=== PATIENT | male | born 1935 | race Caucasian/White ===

== ENCOUNTER 2017-06-23 17:26 | Inpatient (IN) | payer MEDICARE, OTHER ==
[2017-06-23 18:08] LABS: ADD MAN DIFF? NO
[2017-06-23 18:11] LABS: BASOPHILS % 0.2 % (0.0-2.0); EOSINOPHILS # 0.5 10^3/ul (0.0-0.5); EOSINOPHILS % 4.2 % (0.0-7.0); HEMOGLOBIN 9.3 g/dl (14.0-18.0); LYMPHOCYTES # 1.6 10^3/ul (0.8-2.9); LYMPHOCYTES % 12.6 % (15.0-51.0); MEAN CORPUSCULAR HEMOGLOBIN 29.1 pg (29.0-33.0); MEAN CORPUSCULAR HGB CONC 33.2 g/dl (32.0-37.0); MEAN CORPUSCULAR VOLUME 87.5 fl (82.0-101.0); MONOCYTE # 0.6 10^3/ul (0.3-0.9); MONOCYTES % 4.6 % (0.0-11.0); NEUTROPHIL # 9.5 10^3/ul (1.6-7.5); NEUTROPHILS % 77.6 % (39.0-77.0); PLATELET COUNT 192 10^3/UL (140-415); RED CELL DISTRIBUTION WIDTH 15.8 % (11.5-14.5)
[2017-06-23 18:11] LABS: WHITE BLOOD COUNT 12.3 10^3/ul (4.8-10.8)
[2017-06-23] MEDS: SOD CHLORIDE 0.9% 1,000 ML IV (18:11)
[2017-06-23 18:27] LABS: LACTIC ACID 1.3 mmol/L (0.5-2.0)
[2017-06-23 18:28] LABS: ALANINE AMINOTRANSFERASE 24 IU/L (13-69); ALBUMIN 3.3 g/dl (3.3-4.9); ALBUMIN/GLOBULIN RATIO 0.94; ALKALINE PHOSPHATASE 216 IU/L (42-121); ANION GAP 19 (8-16); ASPARTATE AMINO TRANSFERASE 18 IU/L (15-46); BILIRUBIN,INDIRECT 0.1 mg/dl (0-1.1); BILIRUBIN,TOTAL 0.1 mg/dl (0.2-1.3); BLOOD UREA NITROGEN 57 mg/dl (7-20); CALCIUM 8.9 mg/dl (8.4-10.2); CARBON DIOXIDE 26 mmol/L (21-31); CHLORIDE 98 mmol/L (97-110); CREATININE 2.35 mg/dl (0.61-1.24); GLUCOSE 165 mg/dl (70-220); POTASSIUM 3.7 mmol/L (3.5-5.1); SODIUM 139 mmol/L (135-144); TOTAL PROTEIN 6.8 g/dl (6.1-8.1)
[2017-06-23 18:36] LABS: INR 1.15; PROTIME 14.9 Sec (11.9-14.9); PT RATIO 1.2
[2017-06-23 18:37] LABS: PARTIAL THROMBOPLASTIN TIME 43.1 Sec (25.0-35.0)
[2017-06-23 18:51] LABS: AADO2 Arterial 113.4 mmHg (7.0-24.0); Allen Test ACCEPTAB; Arterial Base Excess 3.7 mmol/L (-3.0-3); Arterial Blood Gas Oxygen Sat 99.4 mmHG (95.0-100.0); Arterial COHb 0.3 % (0.0-3.0); Arterial Fraction of Oxyhgb 98.7 % (93.0-99.0); Arterial MetHb 0.4 % (0.0-1.5); Arterial Total Hemglobin 9.8 g/dl (12.0-18.0); Arterial pCO2 35.7 mmhg (35-45); MODE VENT - AC; Site Right Radial; TROPONIN-I < 0.012 ng/ml (0.00-0.12)
[2017-06-23] MEDS: CEFEPIME 2GM/50 ML (PMX) 50 ML IVPB (19:11)
[2017-06-23] MEDS: ONDANSETRON 4 MG INJ IV (19:11)
[2017-06-23] MEDS: VANCOMYCIN 1 GM (PMX) 250 ML IVPB (19:11)
[2017-06-23] MEDS: ACETAMINOPHEN 325 MG TAB PO (19:11)
[2017-06-23 21:24] LABS: LACTIC ACID 0.7 mmol/L (0.5-2.0)
[2017-06-23 23:41] LABS: LACTIC ACID 0.6 mmol/L (0.5-2.0); MAGNESIUM 2.4 mg/dl (1.7-2.5)
[2017-06-24] MEDS ORDERED: VANCOMYCIN IV PER PHARMACY XX (00:30)
[2017-06-24] MEDS ORDERED: ONDANSETRON 4 MG INJ IV ×2 (00:30→14:30)
[2017-06-24] MEDS ORDERED: NACL 0.9% 3 ML SYG IV (00:30)
[2017-06-24] MEDS: metroNIDAZOLE 500 MG/NS (PMX) 100 ML IVPB ×4 (01:14→18:47)
[2017-06-24] MEDS ORDERED: PENDING SANTYL ORDER FOR WOUND CARE XX (05:00)
[2017-06-24] MEDS: SOD CHLORIDE 0.9% 1,000 ML IV (05:32)
[2017-06-24] MEDS: CEFTRIAXONE 1 GM/50 ML (PMX) 50 ML IVPB (05:32)
[2017-06-24 07:18] LABS: ADD MAN DIFF? NO
[2017-06-24 07:25] LABS: WHITE BLOOD COUNT 16.9 10^3/ul (4.8-10.8)
[2017-06-24 07:25] LABS: BASOPHILS % 0.2 % (0.0-2.0); EOSINOPHILS # 0.2 10^3/ul (0.0-0.5); EOSINOPHILS % 0.9 % (0.0-7.0); HEMATOCRIT 24.5 % (42.0-52.0); HEMOGLOBIN 8.2 g/dl (14.0-18.0); LYMPHOCYTES # 1.5 10^3/ul (0.8-2.9); LYMPHOCYTES % 8.9 % (15.0-51.0); MEAN CORPUSCULAR HEMOGLOBIN 29.4 pg (29.0-33.0); MEAN CORPUSCULAR HGB CONC 33.5 g/dl (32.0-37.0); MEAN CORPUSCULAR VOLUME 87.8 fl (82.0-101.0); MEAN PLATELET VOLUME 10.2 fl (7.4-10.4); MONOCYTE # 0.7 10^3/ul (0.3-0.9); MONOCYTES % 4.4 % (0.0-11.0); NEUTROPHIL # 14.4 10^3/ul (1.6-7.5); NEUTROPHILS % 85.2 % (39.0-77.0); PLATELET COUNT 182 10^3/UL (140-415); RED BLOOD COUNT 2.79 10^6/ul (4.70-6.10); RED CELL DISTRIBUTION WIDTH 15.9 % (11.5-14.5)
[2017-06-24 07:48] LABS: ALANINE AMINOTRANSFERASE 18 IU/L (13-69); ALKALINE PHOSPHATASE 153 IU/L (42-121); ANION GAP 18 (8-16); ASPARTATE AMINO TRANSFERASE 16 IU/L (15-46); BLOOD UREA NITROGEN 61 mg/dl (7-20); CALCIUM 8.4 mg/dl (8.4-10.2); CARBON DIOXIDE 24 mmol/L (21-31); CHLORIDE 101 mmol/L (97-110); CREATININE 2.69 mg/dl (0.61-1.24); GLUCOSE 104 mg/dl (70-220); POTASSIUM 3.3 mmol/L (3.5-5.1); SODIUM 140 mmol/L (135-144); TOTAL PROTEIN 6.3 g/dl (6.1-8.1)
[2017-06-24 08:04] LABS: LACTIC ACID 0.7 mmol/L (0.5-2.0)
[2017-06-24] MEDS: POTASSIUM CHLORIDE (SR) 20 MEQ TAB PO (09:03)
[2017-06-24] MEDS: POTASSIUM CHLORIDE 20 MEQ POWDER FOR ORAL SOLN GTB (10:07)
[2017-06-24 13:51] LABS: MAGNESIUM 2.4 mg/dl (1.7-2.5)
[2017-06-24] MEDS ORDERED: LEVALBUTEROL (NEB) 0.63 MG/3 ML AMP INH (14:30)
[2017-06-24 17:12] LABS: HEMOGLOBIN A1C 5.6 % (0-5.9)
[2017-06-24] MEDS ORDERED: NON-FORMULARY/PATIENT OWN MED (Protein Supplement (Promod) 30 ML) GTB (21:00)
[2017-06-24] MEDS: AMLODIPINE 5 MG TAB GTB (21:00)
[2017-06-24] MEDS: LEVETIRACETAM (100 MG/ML) 5ML CUP GTB (21:42)
[2017-06-24] MEDS: CHLORHEXIDINE GLUCONATE 15 ML UD CUP MM (21:42)
[2017-06-24] MEDS: SEVELAMER CARBONATE 0.8 GM PKT GTB (21:42)
[2017-06-25] MEDS: metroNIDAZOLE 500 MG/NS (PMX) 100 ML IVPB ×3 (00:21→12:45)
[2017-06-25] MEDS: SOD CHLORIDE 0.9% 1,000 ML IV (00:25)
[2017-06-25 02:10] LABS: ADD UMIC YES; UR AMORPHOUS CRYSTAL FEW /HPF (NONE SEEN); UR ASCORBIC ACID NEGATIVE (NEGATIVE); UR BACTERIA MANY /HPF (NONE SEEN); UR BILIRUBIN (Dip) NEGATIVE (NEGATIVE); UR BLOOD (Dip) 1+ mg/dL (NEGATIVE); UR CLARITY TURBID (CLEAR); UR COLOR AMBER (YELLOW); UR GLUCOSE (Dip) NEGATIVE (NEGATIVE); UR KETONES (Dip) NEGATIVE (NEGATIVE); UR LEUKOCYTE ESTERASE (Dip) 3+ Leu/ul (NEGATIVE); UR MUCUS FEW /HPF (NONE SEEN); UR NITRITE (Dip) NEGATIVE (NEGATIVE); UR RBC 19 /HPF (0-5); UR SPECIFIC GRAVITY (Dip) 1.012 (1.003-1.030); UR SQUAMOUS EPITHELIAL CELL MANY /HPF (FEW); UR TOTAL PROTEIN (Dip) 3+ mg/dl (NEGATIVE); UR UROBILINOGEN (Dip) NEGATIVE (NEGATIVE); UR WBC 107 /HPF (0-5)
[2017-06-25] MEDS: CEFTRIAXONE 1 GM/50 ML (PMX) 50 ML IVPB (03:42)
[2017-06-25] MEDS: AMLODIPINE 5 MG TAB GTB ×3 (03:42→23:28)
[2017-06-25] MEDS: LANSOPRAZOLE 30 MG CAP GTB (05:50)
[2017-06-25] MEDS ORDERED: PANTOPRAZOLE (EC) 40 MG TAB PO (06:00)
[2017-06-25 06:44] LABS: ADD MAN DIFF? NO; BASOPHILS % 0.2 % (0.0-2.0); EOSINOPHILS # 0.2 10^3/ul (0.0-0.5); EOSINOPHILS % 2.7 % (0.0-7.0); HEMATOCRIT 24.3 % (42.0-52.0); HEMOGLOBIN 7.9 g/dl (14.0-18.0); LYMPHOCYTES # 1.4 10^3/ul (0.8-2.9); LYMPHOCYTES % 15.8 % (15.0-51.0); MEAN CORPUSCULAR HEMOGLOBIN 28.9 pg (29.0-33.0); MEAN CORPUSCULAR HGB CONC 32.5 g/dl (32.0-37.0); MEAN PLATELET VOLUME 9.9 fl (7.4-10.4); MONOCYTE # 0.6 10^3/ul (0.3-0.9); MONOCYTES % 6.4 % (0.0-11.0); NEUTROPHIL # 6.6 10^3/ul (1.6-7.5); NEUTROPHILS % 74.3 % (39.0-77.0); PLATELET COUNT 172 10^3/UL (140-415); RED BLOOD COUNT 2.73 10^6/ul (4.70-6.10); RED CELL DISTRIBUTION WIDTH 16.1 % (11.5-14.5)
[2017-06-25 06:44] LABS: WHITE BLOOD COUNT 8.9 10^3/ul (4.8-10.8)
[2017-06-25 06:59] LABS: MAGNESIUM 2.1 mg/dl (1.7-2.5)
[2017-06-25] MEDS: SEVELAMER CARBONATE 0.8 GM PKT GTB ×3 (07:57→23:27)
[2017-06-25] MEDS: LEVETIRACETAM (100 MG/ML) 5ML CUP GTB ×2 (07:57→23:27)
[2017-06-25 08:09] LABS: VANCOMYCIN,RANDOM 8.9 ug/ml
[2017-06-25 08:26] LABS: HEPATITIS B SURFACE ANTIGEN NEGATIVE (NEGATIVE)
[2017-06-25 08:44] LABS: HEPATITIS B SURFACE ANTIBODY NEGATIVE (NEGATIVE)
[2017-06-25] MEDS: CHLORHEXIDINE GLUCONATE 15 ML UD CUP MM ×2 (08:56→23:29)
[2017-06-25] MEDS: MULTIVIT/CA CARB/B CMPLX/FA TAB GTB (08:56)
[2017-06-25] MEDS: LACTOBACILLUS RHAMNOSUS CAP PO (08:56)
[2017-06-25] MEDS: DUTASTERIDE 0.5 MG CAP GTB (08:56)
[2017-06-25 10:06] LABS: ANION GAP 15 (8-16); BLOOD UREA NITROGEN 29 mg/dl (7-20); CALCIUM 8.1 mg/dl (8.4-10.2); CARBON DIOXIDE 26 mmol/L (21-31); CHLORIDE 103 mmol/L (97-110); GLUCOSE 148 mg/dl (70-220); SODIUM 140 mmol/L (135-144)
[2017-06-25] MEDS: LISINOPRIL 20 MG TAB GTB (12:46)
[2017-06-25] MEDS: PIPER-TAZO 2.25 GM (PMX) 50 ML IVPB ×2 (13:58→17:52)
[2017-06-25] MEDS: HEPARIN 5,000 UNIT/0.5 ML VIAL SC ×2 (14:11→23:55)
[2017-06-25] MEDS: VANCOMYCIN 1 GM 250 ML IVPB (14:47)
[2017-06-25] MEDS: VANCOMYCIN HCL 250 MG/5ML POSYG PO (17:51)
[2017-06-25] MEDS: metroNIDAZOLE 500 MG TAB GTB (23:29)
[2017-06-26] MEDS: VANCOMYCIN HCL 250 MG/5ML POSYG PO ×4 (00:46→17:02)
[2017-06-26] MEDS: PIPER-TAZO 2.25 GM (PMX) 50 ML IVPB ×2 (00:46→06:20)
[2017-06-26] MEDS: metroNIDAZOLE 500 MG TAB GTB ×3 (06:20→23:33)
[2017-06-26] MEDS: LANSOPRAZOLE 30 MG CAP GTB (06:21)
[2017-06-26 08:33] LABS: ADD MAN DIFF? NO
[2017-06-26 08:39] LABS: BASOPHILS % 0.2 % (0.0-2.0); EOSINOPHILS # 0.4 10^3/ul (0.0-0.5); EOSINOPHILS % 3.6 % (0.0-7.0); HEMATOCRIT 23.2 % (42.0-52.0); HEMOGLOBIN 7.5 g/dl (14.0-18.0); LYMPHOCYTES # 1.2 10^3/ul (0.8-2.9); MEAN CORPUSCULAR HGB CONC 32.3 g/dl (32.0-37.0); MEAN CORPUSCULAR VOLUME 89.6 fl (82.0-101.0); MEAN PLATELET VOLUME 10.3 fl (7.4-10.4); MONOCYTE # 0.6 10^3/ul (0.3-0.9); MONOCYTES % 6.4 % (0.0-11.0); NEUTROPHIL # 7.6 10^3/ul (1.6-7.5); NEUTROPHILS % 77.2 % (39.0-77.0); PLATELET COUNT 182 10^3/UL (140-415); RED BLOOD COUNT 2.59 10^6/ul (4.70-6.10); RED CELL DISTRIBUTION WIDTH 16.4 % (11.5-14.5)
[2017-06-26 08:39] LABS: WHITE BLOOD COUNT 9.8 10^3/ul (4.8-10.8)
[2017-06-26] MEDS: LISINOPRIL 20 MG TAB GTB (09:00)
[2017-06-26] MEDS: AMLODIPINE 5 MG TAB GTB ×2 (09:00→21:30)
[2017-06-26 09:05] LABS: MAGNESIUM 2.3 mg/dl (1.7-2.5)
[2017-06-26 09:35] LABS: ANION GAP 14 (8-16); BLOOD UREA NITROGEN 46 mg/dl (7-20); CALCIUM 7.8 mg/dl (8.4-10.2); CARBON DIOXIDE 27 mmol/L (21-31); CHLORIDE 102 mmol/L (97-110); CREATININE 2.12 mg/dl (0.61-1.24); GLUCOSE 173 mg/dl (70-220); PHOSPHORUS 2.1 mg/dl (2.5-4.9); POTASSIUM 3.8 mmol/L (3.5-5.1); SODIUM 139 mmol/L (135-144)
[2017-06-26] MEDS: HEPARIN 1000 UNITS/ML 10 ML INJ CATHETER (12:20)
[2017-06-26] MEDS: CHLORHEXIDINE GLUCONATE 15 ML UD CUP MM ×2 (12:42→21:28)
[2017-06-26] MEDS: LEVETIRACETAM (100 MG/ML) 5ML CUP GTB ×2 (12:42→21:28)
[2017-06-26] MEDS: LACTOBACILLUS RHAMNOSUS CAP PO (12:42)
[2017-06-26] MEDS: MEROPENEM 500MG/50 ML (PMX) 50 ML IVPB ×2 (12:42→21:27)
[2017-06-26] MEDS: SEVELAMER CARBONATE 0.8 GM PKT GTB ×3 (12:42→21:28)
[2017-06-26] MEDS: DUTASTERIDE 0.5 MG CAP GTB (12:42)
[2017-06-26] MEDS: MULTIVIT/CA CARB/B CMPLX/FA TAB GTB (12:43)
[2017-06-26] MEDS: HEPARIN 5,000 UNIT/0.5 ML VIAL SC ×2 (12:45→21:58)
[2017-06-27] MEDS: VANCOMYCIN HCL 250 MG/5ML POSYG PO ×5 (01:42→23:53)
[2017-06-27] MEDS: LANSOPRAZOLE 30 MG CAP GTB (05:32)
[2017-06-27] MEDS: metroNIDAZOLE 500 MG TAB GTB ×3 (05:32→21:35)
[2017-06-27] MEDS: MEROPENEM 500MG/50 ML (PMX) 50 ML IVPB ×2 (08:23→21:36)
[2017-06-27] MEDS: LACTOBACILLUS RHAMNOSUS CAP PO (08:26)
[2017-06-27] MEDS: CHLORHEXIDINE GLUCONATE 15 ML UD CUP MM ×2 (08:26→21:35)
[2017-06-27] MEDS: AMLODIPINE 5 MG TAB GTB ×2 (08:26→21:36)
[2017-06-27] MEDS: MULTIVIT/CA CARB/B CMPLX/FA TAB GTB (08:26)
[2017-06-27] MEDS: SEVELAMER CARBONATE 0.8 GM PKT GTB ×3 (08:26→21:35)
[2017-06-27] MEDS: LEVETIRACETAM (100 MG/ML) 5ML CUP GTB ×2 (08:26→21:35)
[2017-06-27] MEDS: LISINOPRIL 20 MG TAB GTB (08:27)
[2017-06-27] MEDS: HEPARIN 5,000 UNIT/0.5 ML VIAL SC ×2 (08:28→21:41)
[2017-06-27] MEDS: DUTASTERIDE 0.5 MG CAP GTB (08:30)
[2017-06-27 08:40] LABS: ADD MAN DIFF? NO
[2017-06-27 08:44] LABS: BASOPHILS % 0.3 % (0.0-2.0); EOSINOPHILS # 0.5 10^3/ul (0.0-0.5); EOSINOPHILS % 4.7 % (0.0-7.0); HEMATOCRIT 25.3 % (42.0-52.0); LYMPHOCYTES # 2.2 10^3/ul (0.8-2.9); LYMPHOCYTES % 20.6 % (15.0-51.0); MEAN CORPUSCULAR HEMOGLOBIN 28.9 pg (29.0-33.0); MEAN CORPUSCULAR HGB CONC 31.6 g/dl (32.0-37.0); MEAN CORPUSCULAR VOLUME 91.3 fl (82.0-101.0); MEAN PLATELET VOLUME 10.3 fl (7.4-10.4); MONOCYTE # 0.7 10^3/ul (0.3-0.9); MONOCYTES % 6.6 % (0.0-11.0); NEUTROPHIL # 7.2 10^3/ul (1.6-7.5); NEUTROPHILS % 67.2 % (39.0-77.0); PLATELET COUNT 184 10^3/UL (140-415); RED BLOOD COUNT 2.77 10^6/ul (4.70-6.10); RED CELL DISTRIBUTION WIDTH 16.5 % (11.5-14.5)
[2017-06-27 08:44] LABS: WHITE BLOOD COUNT 10.7 10^3/ul (4.8-10.8)
[2017-06-27 09:08] LABS: ANION GAP 11 (8-16); BLOOD UREA NITROGEN 28 mg/dl (7-20); CALCIUM 8.1 mg/dl (8.4-10.2); CARBON DIOXIDE 33 mmol/L (21-31); CHLORIDE 100 mmol/L (97-110); CREATININE 1.65 mg/dl (0.61-1.24); GLUCOSE 138 mg/dl (70-220); POTASSIUM 3.7 mmol/L (3.5-5.1); SODIUM 140 mmol/L (135-144)
[2017-06-28] MEDS: metroNIDAZOLE 500 MG TAB GTB (05:53)
[2017-06-28] MEDS: VANCOMYCIN HCL 250 MG/5ML POSYG PO ×3 (05:53→17:57)
[2017-06-28] MEDS: LANSOPRAZOLE 30 MG CAP GTB (05:53)
[2017-06-28 08:42] LABS: ADD MAN DIFF? NO
[2017-06-28 08:48] LABS: BASOPHILS % 0.2 % (0.0-2.0); EOSINOPHILS # 0.4 10^3/ul (0.0-0.5); EOSINOPHILS % 4.6 % (0.0-7.0); HEMATOCRIT 25.4 % (42.0-52.0); HEMOGLOBIN 8.1 g/dl (14.0-18.0); LYMPHOCYTES # 2.3 10^3/ul (0.8-2.9); LYMPHOCYTES % 25.4 % (15.0-51.0); MEAN CORPUSCULAR HGB CONC 31.9 g/dl (32.0-37.0); MEAN PLATELET VOLUME 9.9 fl (7.4-10.4); MONOCYTE # 0.6 10^3/ul (0.3-0.9); MONOCYTES % 6.6 % (0.0-11.0); NEUTROPHIL # 5.7 10^3/ul (1.6-7.5); NEUTROPHILS % 62.5 % (39.0-77.0); PLATELET COUNT 175 10^3/UL (140-415); RED BLOOD COUNT 2.79 10^6/ul (4.70-6.10); RED CELL DISTRIBUTION WIDTH 16.7 % (11.5-14.5)
[2017-06-28 08:48] LABS: WHITE BLOOD COUNT 9.1 10^3/ul (4.8-10.8)
[2017-06-28] MEDS: DUTASTERIDE 0.5 MG CAP GTB (08:52)
[2017-06-28] MEDS: LISINOPRIL 20 MG TAB GTB (08:53)
[2017-06-28] MEDS: AMLODIPINE 5 MG TAB GTB ×2 (08:53→21:07)
[2017-06-28] MEDS: MEROPENEM 500MG/50 ML (PMX) 50 ML IVPB (08:53)
[2017-06-28] MEDS: LEVETIRACETAM (100 MG/ML) 5ML CUP GTB ×2 (08:53→21:07)
[2017-06-28] MEDS: CHLORHEXIDINE GLUCONATE 15 ML UD CUP MM ×2 (08:53→21:06)
[2017-06-28] MEDS: LACTOBACILLUS RHAMNOSUS CAP PO (08:53)
[2017-06-28] MEDS: HEPARIN 5,000 UNIT/0.5 ML VIAL SC ×2 (08:55→22:22)
[2017-06-28] MEDS: SEVELAMER CARBONATE 0.8 GM PKT GTB ×3 (08:56→21:06)
[2017-06-28] MEDS: MULTIVIT/CA CARB/B CMPLX/FA TAB GTB (09:04)
[2017-06-28] MEDS ORDERED: AMIKACIN IV PER PHARMACY XX (13:00)
[2017-06-28] MEDS: COLISTIMETHATE 75 MG in SOD CHLORIDE 0.9% 100 ML IVPB (15:45)
[2017-06-28] MEDS: SOD CHLORIDE 0.9% IVPB (17:07)
[2017-06-28] MEDS: AMIKACIN IVPB (17:07)
[2017-06-29] MEDS: VANCOMYCIN HCL 250 MG/5ML POSYG PO ×4 (01:24→17:17)
[2017-06-29] MEDS: ACETAMINOPHEN 325 MG TAB PO ×3 (06:00→21:50)
[2017-06-29] MEDS: LANSOPRAZOLE 30 MG CAP GTB (06:01)
[2017-06-29 06:43] LABS: ADD MAN DIFF? NO
[2017-06-29 06:45] LABS: WHITE BLOOD COUNT 8.1 10^3/ul (4.8-10.8)
[2017-06-29 06:45] LABS: BASOPHILS % 0.2 % (0.0-2.0); EOSINOPHILS # 0.3 10^3/ul (0.0-0.5); EOSINOPHILS % 3.7 % (0.0-7.0); HEMATOCRIT 25.7 % (42.0-52.0); HEMOGLOBIN 8.3 g/dl (14.0-18.0); LYMPHOCYTES # 1.4 10^3/ul (0.8-2.9); LYMPHOCYTES % 16.7 % (15.0-51.0); MEAN CORPUSCULAR HEMOGLOBIN 29.5 pg (29.0-33.0); MEAN CORPUSCULAR HGB CONC 32.3 g/dl (32.0-37.0); MEAN CORPUSCULAR VOLUME 91.5 fl (82.0-101.0); MEAN PLATELET VOLUME 9.4 fl (7.4-10.4); MONOCYTE # 0.5 10^3/ul (0.3-0.9); MONOCYTES % 6.7 % (0.0-11.0); NEUTROPHIL # 5.8 10^3/ul (1.6-7.5); NEUTROPHILS % 72.1 % (39.0-77.0); PLATELET COUNT 178 10^3/UL (140-415); RED BLOOD COUNT 2.81 10^6/ul (4.70-6.10); RED CELL DISTRIBUTION WIDTH 16.6 % (11.5-14.5)
[2017-06-29 07:27] LABS: INR 1.22; PROTIME 15.6 Sec (11.9-14.9); PT RATIO 1.2
[2017-06-29 07:30] LABS: ALANINE AMINOTRANSFERASE 23 IU/L (13-69); ALBUMIN/GLOBULIN RATIO 0.88; ALKALINE PHOSPHATASE 156 IU/L (42-121); ANION GAP 15 (8-16); ASPARTATE AMINO TRANSFERASE 17 IU/L (15-46); BLOOD UREA NITROGEN 53 mg/dl (7-20); CARBON DIOXIDE 29 mmol/L (21-31); CHLORIDE 98 mmol/L (97-110); CREATININE 2.74 mg/dl (0.61-1.24); GLUCOSE 145 mg/dl (70-220); SODIUM 138 mmol/L (135-144); TOTAL PROTEIN 6.4 g/dl (6.1-8.1)
[2017-06-29] MEDS: ALTEPLASE (CATHFLO) 2 MG INJ CATHETER (09:13)
[2017-06-29] MEDS: DUTASTERIDE 0.5 MG CAP GTB (09:19)
[2017-06-29] MEDS: LACTOBACILLUS RHAMNOSUS CAP PO (09:19)
[2017-06-29] MEDS: MULTIVIT/CA CARB/B CMPLX/FA TAB GTB (09:19)
[2017-06-29] MEDS: LISINOPRIL 20 MG TAB GTB (09:20)
[2017-06-29] MEDS: LEVETIRACETAM (100 MG/ML) 5ML CUP GTB ×2 (09:20→21:48)
[2017-06-29] MEDS: SEVELAMER CARBONATE 0.8 GM PKT GTB ×3 (09:20→21:49)
[2017-06-29] MEDS: AMLODIPINE 5 MG TAB GTB ×2 (09:20→21:50)
[2017-06-29] MEDS: CHLORHEXIDINE GLUCONATE 15 ML UD CUP MM ×2 (09:21→21:48)
[2017-06-29] MEDS: HEPARIN 5,000 UNIT/0.5 ML VIAL SC ×2 (09:25→21:52)
[2017-06-29] MEDS ORDERED: ALBUMIN HUMAN 25% 100 ML IV (14:30)
[2017-06-29] MEDS: HEPARIN 1000 UNITS/ML 10 ML INJ CATHETER (17:10)
[2017-06-29] MEDS: EPOETIN 10000 UNITS/1 ML INJ (ESRD) SC (17:18)
[2017-06-29] MEDS: COLISTIMETHATE 75 MG in SOD CHLORIDE 0.9% 100 ML IVPB (17:18)
[2017-06-29] MEDS: AMIKACIN 300 MG in SOD CHLORIDE 0.9% 100 ML IVPB (19:04)
[2017-06-30] MEDS: VANCOMYCIN HCL 250 MG/5ML POSYG PO ×4 (01:56→18:04)
[2017-06-30] MEDS: ACETAMINOPHEN 325 MG TAB PO ×2 (05:04→21:25)
[2017-06-30] MEDS: LANSOPRAZOLE 30 MG CAP GTB (05:05)
[2017-06-30] MEDS: CHLORHEXIDINE GLUCONATE 15 ML UD CUP MM ×2 (08:41→20:19)
[2017-06-30] MEDS: LACTOBACILLUS RHAMNOSUS CAP PO (08:41)
[2017-06-30] MEDS: LEVETIRACETAM (100 MG/ML) 5ML CUP GTB ×2 (08:41→20:18)
[2017-06-30] MEDS: SEVELAMER CARBONATE 0.8 GM PKT GTB ×3 (08:41→20:19)
[2017-06-30] MEDS: DUTASTERIDE 0.5 MG CAP GTB (08:41)
[2017-06-30] MEDS: MULTIVIT/CA CARB/B CMPLX/FA TAB GTB (08:42)
[2017-06-30] MEDS: AMLODIPINE 5 MG TAB GTB ×2 (08:43→20:21)
[2017-06-30] MEDS: LISINOPRIL 20 MG TAB GTB (08:43)
[2017-06-30] MEDS: HEPARIN 5,000 UNIT/0.5 ML VIAL SC ×2 (09:05→20:23)
[2017-06-30] MEDS ORDERED: VANCOMYCIN IV PER PHARMACY XX (12:00)
[2017-06-30] MEDS: FLUCONAZOLE 100 MG TAB PO (12:27)
[2017-06-30] MEDS: VANCOMYCIN 1 GM 250 ML IVPB (12:28)
[2017-06-30] MEDS: COLISTIMETHATE 75 MG in SOD CHLORIDE 0.9% 100 ML IVPB (14:44)
[2017-07-01] MEDS: VANCOMYCIN HCL 250 MG/5ML POSYG PO ×4 (00:42→18:00)
[2017-07-01] MEDS: LANSOPRAZOLE 30 MG CAP GTB (06:13)
[2017-07-01] MEDS: AMLODIPINE 5 MG TAB GTB (09:00)
[2017-07-01] MEDS: LISINOPRIL 20 MG TAB GTB (09:00)
[2017-07-01] MEDS: FLUCONAZOLE 100 MG TAB PO (09:28)
[2017-07-01] MEDS: MULTIVIT/CA CARB/B CMPLX/FA TAB GTB (09:28)
[2017-07-01] MEDS: LACTOBACILLUS RHAMNOSUS CAP PO (09:28)
[2017-07-01] MEDS: LEVETIRACETAM (100 MG/ML) 5ML CUP GTB (09:28)
[2017-07-01] MEDS: DUTASTERIDE 0.5 MG CAP GTB (09:28)
[2017-07-01] MEDS: SEVELAMER CARBONATE 0.8 GM PKT GTB ×2 (09:28→13:01)
[2017-07-01] MEDS: CHLORHEXIDINE GLUCONATE 15 ML UD CUP MM (09:29)
[2017-07-01] MEDS: HEPARIN 5,000 UNIT/0.5 ML VIAL SC (09:46)
[2017-07-01] MEDS: HEPARIN 1000 UNITS/ML 10 ML INJ CATHETER (11:52)
[2017-07-01] MEDS: AMIKACIN 300 MG in SOD CHLORIDE 0.9% 100 ML IVPB (13:02)
[2017-07-01] MEDS: EPOETIN 10000 UNITS/1 ML INJ (ESRD) SC (16:34)
[2017-07-01] MEDS: COLISTIMETHATE 75 MG in SOD CHLORIDE 0.9% 100 ML IVPB ×2 (17:40→18:18)
== END 2017-07-01 18:30 | disposition short-term general hospital (02) | DRG 870 ==
LOC: TEL 18:55 → E/R 17:26
PROC: 5A1955Z Respiratory Ventilation, Greater than 96 Consecutive Hours (ICD-10-PCS; principal; 2017-06-23)
PROC: 5A1D70Z Performance of Urinary Filtration, Intermittent, Less than 6 Hours Per Day (ICD-10-PCS; 2017-06-24)
PROC: 5A1D70Z Performance of Urinary Filtration, Intermittent, Less than 6 Hours Per Day (ICD-10-PCS; 2017-06-26)
PROC: 5A1D70Z Performance of Urinary Filtration, Intermittent, Less than 6 Hours Per Day (ICD-10-PCS; 2017-06-29)
PROC: 5A1D70Z Performance of Urinary Filtration, Intermittent, Less than 6 Hours Per Day (ICD-10-PCS; 2017-07-01)
DX: A41.50 Gram-negative sepsis, unspecified (principal); N18.6 End stage renal disease; G92 Toxic encephalopathy; N39.0 Urinary tract infection, site not specified; J96.10 Chronic respiratory failure, unspecified whether with hypoxia or hypercapnia; I69.959 Hemiplegia and hemiparesis following unspecified cerebrovascular disease affecting unspecified side; A04.72 Enterocolitis due to Clostridium difficile, not specified as recurrent; Z99.81 Dependence on supplemental oxygen; D64.9 Anemia, unspecified; E11.22 Type 2 diabetes mellitus with diabetic chronic kidney disease; Z43.0 Encounter for attention to tracheostomy; Z93.1 Gastrostomy status; Z87.891 Personal history of nicotine dependence; Z87.820 Personal history of traumatic brain injury; E87.6 Hypokalemia; E83.89 Other disorders of mineral metabolism; R13.10 Dysphagia, unspecified; R65.20 Severe sepsis without septic shock; Z22.322 Carrier or suspected carrier of Methicillin resistant Staphylococcus aureus; R33.9 Retention of urine, unspecified
CPT/HCPCS: 36415; 36600; 70450; 71045; 76705; 80048; 80053; 80202; 81001; 82803; 83036; 83605; 83735; 84100; 84484; 85025; 85610; 85730; 86706; 87040; 87075; 87081; 87086; 87340; 90935; 93005; 94002; 94003; 96365; 96366; 96375; 97162; 97166; 99285-25

== ENCOUNTER 2017-11-03 07:34 | Inpatient (IN) | payer MEDICARE, OTHER ==
[2017-11-03 07:52] LABS: ADD MAN DIFF? NO
[2017-11-03 07:57] LABS: ABNORMAL IP MESSAGE 1; BASOPHILS % 0.2 % (0.0-2.0); EOSINOPHILS # 0.7 10^3/ul (0.0-0.5); EOSINOPHILS % 5.9 % (0.0-7.0); HEMATOCRIT 39.1 % (42.0-52.0); HEMOGLOBIN 12.5 g/dl (14.0-18.0); LYMPHOCYTES # 2.4 10^3/ul (0.8-2.9); LYMPHOCYTES % 19.7 % (15.0-51.0); MEAN CORPUSCULAR HEMOGLOBIN 31.4 pg (29.0-33.0); MEAN CORPUSCULAR VOLUME 98.2 fl (82.0-101.0); MEAN PLATELET VOLUME 11.1 fl (7.4-10.4); MONOCYTE # 0.5 10^3/ul (0.3-0.9); MONOCYTES % 3.9 % (0.0-11.0); NEUTROPHIL # 8.3 10^3/ul (1.6-7.5); NEUTROPHILS % 69.7 % (39.0-77.0); PLATELET COUNT 85 10^3/UL (140-415); POSITIVE DIFF @See below; RED BLOOD COUNT 3.98 10^6/ul (4.70-6.10); RED CELL DISTRIBUTION WIDTH 15.9 % (11.5-14.5)
[2017-11-03 07:57] LABS: WHITE BLOOD COUNT 11.9 10^3/ul (4.8-10.8)
[2017-11-03 08:13] LABS: LACTIC ACID 1.4 mmol/L (0.5-2.0)
[2017-11-03 08:17] LABS: INR 0.98; PROTIME 13.1 Sec (11.9-14.9)
[2017-11-03 08:20] LABS: ALANINE AMINOTRANSFERASE 31 IU/L (13-69); ALBUMIN 3.9 g/dl (3.3-4.9); ALBUMIN/GLOBULIN RATIO 1.02; ALKALINE PHOSPHATASE 285 IU/L (42-121); ANION GAP 18 (8-16); ASPARTATE AMINO TRANSFERASE 31 IU/L (15-46); BILIRUBIN,INDIRECT 0.2 mg/dl (0-1.1); BILIRUBIN,TOTAL 0.2 mg/dl (0.2-1.3); BLOOD UREA NITROGEN 35 mg/dl (7-20); CALCIUM 8.8 mg/dl (8.4-10.2); CARBON DIOXIDE 24 mmol/L (21-31); CHLORIDE 102 mmol/L (97-110); GLUCOSE 220 mg/dl (70-220); POTASSIUM 4.7 mmol/L (3.5-5.1); SODIUM 139 mmol/L (135-144); TOTAL PROTEIN 7.7 g/dl (6.1-8.1)
[2017-11-03 08:30] LABS: TROPONIN-I < 0.012 ng/ml (0.000-0.120)
[2017-11-03] MEDS: PIPER-TAZO 3.375 GM IV (PMX) 100 ML IVPB (08:41)
[2017-11-03] MEDS: VANCOMYCIN 1.25 GM in SOD CHLORIDE 0.9% 250 ML IVPB (09:42)
[2017-11-03 10:11] LABS: AADO2 Arterial 247.5 mmHg (7.0-24.0); Allen Test ACCEPTAB; Arterial Base Excess -4.5 mmol/L (-3.0-3); Arterial Blood Gas Oxygen Sat 99.6 mmHG (95.0-100.0); Arterial COHb 0.4 % (0.0-3.0); Arterial Fraction of Oxyhgb 98.9 % (93.0-99.0); Arterial HCO3 25.2 mmol/L (22.0-26.0); Arterial MetHb 0.3 % (0.0-1.5); Arterial pCO2 70.3 mmhg (35-45); MODE MASK - NRB; Site Left Radial
[2017-11-03] MEDS: SOD CHLORIDE 0.9% 500 ML IV ×2 (10:33→10:42)
[2017-11-03 11:34] LABS: LACTIC ACID 1.3 mmol/L (0.5-2.0)
[2017-11-03 12:18] LABS: LACTIC ACID 2.2 mmol/L (0.5-2.0)
[2017-11-03] MEDS: SODIUM CHLORIDE 0.9% 1L BAG IV* (12:57)
[2017-11-03] MEDS ORDERED: VANCOMYCIN IV PER PHARMACY XX (13:00)
[2017-11-03] MEDS: PIPER-TAZO 2.25 GM (PMX) 50 ML IVPB ×3 (13:00→23:05)
[2017-11-03 13:28] LABS: AADO2 Arterial 124.3 mmHg (7.0-24.0); Allen Test ACCEPTAB; Arterial Base Excess -6.2 mmol/L (-3.0-3); Arterial Blood Gas Oxygen Sat 95.4 mmHG (95.0-100.0); Arterial COHb 0.5 % (0.0-3.0); Arterial Fraction of Oxyhgb 94.7 % (93.0-99.0); Arterial HCO3 19.5 mmol/L (22.0-26.0); Arterial MetHb 0.2 % (0.0-1.5); Arterial pCO2 39.4 mmhg (35-45); MODE VENT - AC; Site Left Radial
[2017-11-03] MEDS ORDERED: ALBUTEROL/IPRATROPIUM (NEB) 3 ML AMP HHN (13:30)
[2017-11-03] MEDS: SOD CHLORIDE 0.9% 250 ML IV ×2 (14:00→16:45)
[2017-11-03 16:03] LABS: CREATINE KINASE 29 IU/L (23-200)
[2017-11-03 16:17] LABS: CK INDEX 4.6; CK-MB 1.32 ng/ml (0.0-2.4); TROPONIN-I 0.026 ng/ml (0.000-0.120)
[2017-11-03] MEDS: SOD CHLORIDE 0.9% 1,000 ML IV (17:53)
[2017-11-03] MEDS ORDERED: NON-FORMULARY/PATIENT OWN MED (Protein Supplement (Promod) 30 ML) GTB (21:00)
[2017-11-03] MEDS ORDERED: AMLODIPINE 5 MG TAB GTB (21:00)
[2017-11-03] MEDS ORDERED: SEVELAMER CARBONATE 1.6 GM GTB (21:00)
[2017-11-03] MEDS: LEVETIRACETAM (100 MG/ML) 5ML CUP GTB (23:05)
[2017-11-03] MEDS: FERROUS SULFATE (EC) 325 MG TAB PO (23:05)
[2017-11-03] MEDS: ACETAMINOPHEN 325 MG TAB GTB (23:06)
[2017-11-03] MEDS: LACTOBACILLUS RHAMNOSUS CAP GTB (23:07)
[2017-11-03] MEDS: SEVELAMER CARBONATE 0.8 GM PKT GTB (23:07)
[2017-11-03 23:52] LABS: CK-MB 1.09 ng/ml (0.0-2.4); TROPONIN-I 0.032 ng/ml (0.000-0.120)
[2017-11-03 23:57] LABS: CREATINE KINASE 36 IU/L (23-200)
[2017-11-04] MEDS: SOD CHLORIDE 0.9% 1,000 ML IV ×2 (01:00→19:40)
[2017-11-04] MEDS: PIPER-TAZO 2.25 GM (PMX) 50 ML IVPB ×3 (05:30→21:50)
[2017-11-04] MEDS: PANTOPRAZOLE (EC) 40 MG TAB PO (05:30)
[2017-11-04 06:22] LABS: ABNORMAL IP MESSAGE 1; ADD MAN DIFF? NO; BASOPHILS % 0.3 % (0.0-2.0); EOSINOPHILS # 0.2 10^3/ul (0.0-0.5); EOSINOPHILS % 1.3 % (0.0-7.0); HEMATOCRIT 28.8 % (42.0-52.0); HEMOGLOBIN 9.2 g/dl (14.0-18.0); LYMPHOCYTES # 1.5 10^3/ul (0.8-2.9); LYMPHOCYTES % 9.6 % (15.0-51.0); MEAN CORPUSCULAR HEMOGLOBIN 31.1 pg (29.0-33.0); MEAN CORPUSCULAR HGB CONC 31.9 g/dl (32.0-37.0); MEAN CORPUSCULAR VOLUME 97.3 fl (82.0-101.0); MEAN PLATELET VOLUME 11.3 fl (7.4-10.4); MONOCYTE # 0.9 10^3/ul (0.3-0.9); MONOCYTES % 5.8 % (0.0-11.0); NEUTROPHIL # 13.2 10^3/ul (1.6-7.5); NEUTROPHILS % 82.7 % (39.0-77.0); PLATELET COUNT 74 10^3/UL (140-415); POSITIVE DIFF @See below; RED BLOOD COUNT 2.96 10^6/ul (4.70-6.10); RED CELL DISTRIBUTION WIDTH 16.5 % (11.5-14.5)
[2017-11-04 06:22] LABS: WHITE BLOOD COUNT 15.9 10^3/ul (4.8-10.8)
[2017-11-04 07:15] LABS: ANION GAP 14 (8-16); BLOOD UREA NITROGEN 47 mg/dl (7-20); CALCIUM 7.8 mg/dl (8.4-10.2); CARBON DIOXIDE 22 mmol/L (21-31); CHLORIDE 109 mmol/L (97-110); CREATININE 2.95 mg/dl (0.61-1.24); GLUCOSE 92 mg/dl (70-220); MAGNESIUM 2.5 mg/dl (1.7-2.5); POTASSIUM 4.8 mmol/L (3.5-5.1); SODIUM 140 mmol/L (135-144)
[2017-11-04 07:16] LABS: PHOSPHORUS 3.3 mg/dl (2.5-4.9)
[2017-11-04 07:53] LABS: ANISOCYTOSIS 1+ (0-0); BAND NEUTROPHILS #M 4.6 10^3/ul (0.0-0.6); BAND NEUTROPHILS % (M) 29 % (0-4); EOSINOPHILS % (M) 1 % (0-7); LYMPHOCYTES #M 1.7 10^3/ul (0.8-2.9); LYMPHOCYTES % (M) 11 % (15-51); METAMYELOCYTES #M 0.1 10^3/ul (0.0-0.0); METAMYELOCYTES %M 1 % (0-0); MICROCYTOSIS 1+ (0-0); MONOCYTE #M 0.7 10^3/ul (0.3-0.9); MONOCYTES % (M) 5 % (0-11); MYELOCYTES #M 0.1 10^3/ul (0.0-0.0); MYELOCYTES % (M) 1 % (0-0); PLATELET ESTIMATE SIG DECREASED; POLYCHROMASIA 2+ (0-0); PROMYELOCYTES #M 0.1 10^3/ul (0-0); PROMYELOCYTES % (M) 1 % (0-0); SEG NEUT #M 8.8 10^3/ul (1.6-7.5); SEGMENTED NEUTROPHILS (M) % 51 % (39-77); SMUDGE%M 6 % (0-0); SPHEROCYTES 1+ (0-0)
[2017-11-04] MEDS: LISINOPRIL 20 MG TAB GTB (09:00)
[2017-11-04] MEDS ORDERED: DUTASTERIDE 0.5 MG GTB (09:00)
[2017-11-04] MEDS: FERROUS SULFATE (EC) 325 MG TAB PO ×2 (10:05→21:49)
[2017-11-04] MEDS: SEVELAMER CARBONATE 0.8 GM PKT GTB ×3 (10:05→21:49)
[2017-11-04] MEDS: ASCORBIC ACID 250 MG TAB GTB (10:05)
[2017-11-04] MEDS: LEVETIRACETAM (100 MG/ML) 5ML CUP GTB ×2 (10:05→21:49)
[2017-11-04] MEDS: LACTOBACILLUS RHAMNOSUS CAP GTB ×2 (10:05→21:49)
[2017-11-04 16:35] LABS: HEPATITIS B SURFACE ANTIGEN NEGATIVE (NEGATIVE)
[2017-11-04] MEDS: HEPARIN 1000 UNITS/ML 10 ML INJ CATHETER (20:13)
[2017-11-04] MEDS ORDERED: TERAZOSIN 1 MG CAP PO (21:00)
[2017-11-05 05:40] LABS: ADD MAN DIFF? NO
[2017-11-05 05:43] LABS: WHITE BLOOD COUNT 12.2 10^3/ul (4.8-10.8)
[2017-11-05 05:43] LABS: ABNORMAL IP MESSAGE 1; BASOPHILS % 0.3 % (0.0-2.0); EOSINOPHILS # 0.8 10^3/ul (0.0-0.5); EOSINOPHILS % 6.8 % (0.0-7.0); HEMATOCRIT 29.4 % (42.0-52.0); HEMOGLOBIN 9.3 g/dl (14.0-18.0); LYMPHOCYTES # 1.3 10^3/ul (0.8-2.9); LYMPHOCYTES % 10.3 % (15.0-51.0); MEAN CORPUSCULAR HEMOGLOBIN 30.9 pg (29.0-33.0); MEAN CORPUSCULAR HGB CONC 31.6 g/dl (32.0-37.0); MEAN CORPUSCULAR VOLUME 97.7 fl (82.0-101.0); MEAN PLATELET VOLUME 11.1 fl (7.4-10.4); MONOCYTE # 0.6 10^3/ul (0.3-0.9); MONOCYTES % 4.7 % (0.0-11.0); NEUTROPHIL # 9.5 10^3/ul (1.6-7.5); NEUTROPHILS % 77.5 % (39.0-77.0); PLATELET COUNT 88 10^3/UL (140-415); POSITIVE DIFF @See below; RED BLOOD COUNT 3.01 10^6/ul (4.70-6.10); RED CELL DISTRIBUTION WIDTH 15.9 % (11.5-14.5)
[2017-11-05] MEDS: PIPER-TAZO 2.25 GM (PMX) 50 ML IVPB ×2 (06:08→19:38)
[2017-11-05] MEDS: PANTOPRAZOLE (EC) 40 MG TAB PO (06:08)
[2017-11-05 06:24] LABS: VANCOMYCIN,RANDOM 9.3 ug/ml
[2017-11-05 06:46] LABS: ANION GAP 15 (8-16); BLOOD UREA NITROGEN 22 mg/dl (7-20); CARBON DIOXIDE 25 mmol/L (21-31); CHLORIDE 104 mmol/L (97-110); CREATININE 1.97 mg/dl (0.61-1.24); GLUCOSE 55 mg/dl (70-220); SODIUM 140 mmol/L (135-144)
[2017-11-05] MEDS: LACTOBACILLUS RHAMNOSUS CAP GTB ×2 (09:20→20:31)
[2017-11-05] MEDS: SEVELAMER CARBONATE 0.8 GM PKT GTB ×3 (09:20→20:31)
[2017-11-05] MEDS: LEVETIRACETAM (100 MG/ML) 5ML CUP GTB ×2 (09:20→20:31)
[2017-11-05] MEDS: LISINOPRIL 20 MG TAB GTB (09:21)
[2017-11-05] MEDS: FERROUS SULFATE (EC) 325 MG TAB PO ×2 (09:21→20:30)
[2017-11-05] MEDS: ASCORBIC ACID 250 MG TAB GTB (09:21)
[2017-11-05] MEDS: VANCOMYCIN 1 GM 250 ML IVPB (14:55)
[2017-11-05] MEDS ORDERED: DEXTROSE 50% 50 ML SYRINGE IV ×2 (15:30)
[2017-11-05] MEDS ORDERED: GLUCAGON 1 MG INJ IM (15:30)
[2017-11-05] MEDS ORDERED: GLUCOSE GEL 15 GRAM TUBE BUCCAL (15:30)
[2017-11-05] MEDS ORDERED: GLUCOSE GEL 15 GRAM TUBE PO ×2 (15:30)
[2017-11-05] MEDS: INSULIN ASPART [NOVOLOG] 3 ML PEN SC (18:00)
[2017-11-05] MEDS: MUPIROCIN 2% 22 GM OINT TOP (20:32)
[2017-11-06] MEDS: PIPER-TAZO 2.25 GM (PMX) 50 ML IVPB ×3 (05:40→21:09)
[2017-11-06] MEDS: PANTOPRAZOLE (EC) 40 MG TAB PO (05:40)
[2017-11-06 05:42] LABS: ADD MAN DIFF? NO
[2017-11-06 05:47] LABS: WHITE BLOOD COUNT 7.3 10^3/ul (4.8-10.8)
[2017-11-06 05:47] LABS: ABNORMAL IP MESSAGE 1; BASOPHILS % 0.3 % (0.0-2.0); EOSINOPHILS # 0.7 10^3/ul (0.0-0.5); EOSINOPHILS % 9.8 % (0.0-7.0); HEMATOCRIT 32.7 % (42.0-52.0); HEMOGLOBIN 10.4 g/dl (14.0-18.0); LYMPHOCYTES # 1.1 10^3/ul (0.8-2.9); LYMPHOCYTES % 15.4 % (15.0-51.0); MEAN CORPUSCULAR HEMOGLOBIN 30.7 pg (29.0-33.0); MEAN CORPUSCULAR HGB CONC 31.8 g/dl (32.0-37.0); MEAN CORPUSCULAR VOLUME 96.5 fl (82.0-101.0); MONOCYTE # 0.4 10^3/ul (0.3-0.9); MONOCYTES % 5.6 % (0.0-11.0); NEUTROPHILS % 68.6 % (39.0-77.0); PLATELET COUNT 92 10^3/UL (140-415); POSITIVE DIFF @See below; RED BLOOD COUNT 3.39 10^6/ul (4.70-6.10); RED CELL DISTRIBUTION WIDTH 15.4 % (11.5-14.5)
[2017-11-06] MEDS: INSULIN ASPART [NOVOLOG] 3 ML PEN SC ×4 (06:00→17:28)
[2017-11-06 06:38] LABS: ANION GAP 11 (8-16); BLOOD UREA NITROGEN 36 mg/dl (7-20); CALCIUM 8.1 mg/dl (8.4-10.2); CARBON DIOXIDE 28 mmol/L (21-31); CHLORIDE 105 mmol/L (97-110); CREATININE 2.78 mg/dl (0.61-1.24); GLUCOSE 118 mg/dl (70-220); POTASSIUM 4.4 mmol/L (3.5-5.1); SODIUM 140 mmol/L (135-144)
[2017-11-06 06:39] LABS: PHOSPHORUS 3.1 mg/dl (2.5-4.9)
[2017-11-06 06:39] LABS: MAGNESIUM 2.5 mg/dl (1.7-2.5)
[2017-11-06] MEDS: LISINOPRIL 20 MG TAB GTB ×2 (08:29→13:14)
[2017-11-06] MEDS: AMLODIPINE 10 MG TAB GTB (09:00)
[2017-11-06] MEDS: MUPIROCIN 2% 22 GM OINT TOP ×2 (09:00→21:00)
[2017-11-06] MEDS: SEVELAMER CARBONATE 0.8 GM PKT GTB ×3 (09:00→21:00)
[2017-11-06] MEDS: HEPARIN 1000 UNITS/ML 10 ML INJ CATHETER (13:10)
[2017-11-06] MEDS: LEVETIRACETAM (100 MG/ML) 5ML CUP GTB ×2 (13:12→20:59)
[2017-11-06] MEDS: ASCORBIC ACID 250 MG TAB GTB (13:12)
[2017-11-06] MEDS: FERROUS SULFATE (EC) 325 MG TAB PO ×2 (13:14→20:59)
[2017-11-06] MEDS: LACTOBACILLUS RHAMNOSUS CAP GTB ×2 (13:14→20:59)
[2017-11-07] MEDS: INSULIN ASPART [NOVOLOG] 3 ML PEN SC ×4 (01:17→17:30)
[2017-11-07 06:11] LABS: ADD MAN DIFF? NO
[2017-11-07] MEDS: PIPER-TAZO 2.25 GM (PMX) 50 ML IVPB ×3 (06:19→22:00)
[2017-11-07] MEDS: PANTOPRAZOLE (EC) 40 MG TAB PO (06:20)
[2017-11-07 06:21] LABS: WHITE BLOOD COUNT 6.4 10^3/ul (4.8-10.8)
[2017-11-07 06:21] LABS: BASOPHILS % 0.3 % (0.0-2.0); EOSINOPHILS # 0.7 10^3/ul (0.0-0.5); EOSINOPHILS % 10.4 % (0.0-7.0); HEMATOCRIT 33.1 % (42.0-52.0); HEMOGLOBIN 10.6 g/dl (14.0-18.0); LYMPHOCYTES # 1.2 10^3/ul (0.8-2.9); LYMPHOCYTES % 19.3 % (15.0-51.0); MEAN CORPUSCULAR HEMOGLOBIN 30.6 pg (29.0-33.0); MEAN CORPUSCULAR VOLUME 95.7 fl (82.0-101.0); MEAN PLATELET VOLUME 11.3 fl (7.4-10.4); MONOCYTE # 0.4 10^3/ul (0.3-0.9); MONOCYTES % 5.9 % (0.0-11.0); NEUTROPHIL # 4.1 10^3/ul (1.6-7.5); NEUTROPHILS % 63.8 % (39.0-77.0); PLATELET COUNT 101 10^3/UL (140-415); RED BLOOD COUNT 3.46 10^6/ul (4.70-6.10); RED CELL DISTRIBUTION WIDTH 15.5 % (11.5-14.5)
[2017-11-07 06:48] LABS: ANION GAP 11 (8-16); BLOOD UREA NITROGEN 28 mg/dl (7-20); CALCIUM 7.6 mg/dl (8.4-10.2); CARBON DIOXIDE 31 mmol/L (21-31); CHLORIDE 101 mmol/L (97-110); CREATININE 2.21 mg/dl (0.61-1.24); GLUCOSE 176 mg/dl (70-220); MAGNESIUM 2.3 mg/dl (1.7-2.5); PHOSPHORUS 2.2 mg/dl (2.5-4.9); POTASSIUM 4.5 mmol/L (3.5-5.1); SODIUM 138 mmol/L (135-144)
[2017-11-07] MEDS: FERROUS SULFATE (EC) 325 MG TAB PO ×2 (09:14→20:42)
[2017-11-07] MEDS: ASCORBIC ACID 250 MG TAB GTB (09:14)
[2017-11-07] MEDS: BALSAM PERU/CASTOR OIL 60 GM TUBE TOP ×2 (09:14→20:42)
[2017-11-07] MEDS: NEUTRA-PHOS 250 MG PACKET PO (09:14)
[2017-11-07] MEDS: LACTOBACILLUS RHAMNOSUS CAP GTB ×2 (09:14→22:15)
[2017-11-07] MEDS: MUPIROCIN 2% 22 GM OINT TOP ×2 (09:14→20:42)
[2017-11-07] MEDS: LEVETIRACETAM (100 MG/ML) 5ML CUP GTB ×2 (09:14→20:41)
[2017-11-07] MEDS: AMLODIPINE 10 MG TAB GTB (09:15)
[2017-11-07] MEDS: LISINOPRIL 20 MG TAB GTB (09:16)
[2017-11-07] MEDS: EPOETIN 10000 UNITS/1 ML INJ (ESRD) SC (17:27)
[2017-11-08] MEDS: INSULIN ASPART [NOVOLOG] 3 ML PEN SC ×4 (00:34→18:00)
[2017-11-08] MEDS: PIPER-TAZO 2.25 GM (PMX) 50 ML IVPB ×3 (05:40→22:26)
[2017-11-08] MEDS: PANTOPRAZOLE (EC) 40 MG TAB PO (05:40)
[2017-11-08 06:03] LABS: ADD MAN DIFF? NO
[2017-11-08 06:15] LABS: WHITE BLOOD COUNT 5.9 10^3/ul (4.8-10.8)
[2017-11-08 06:15] LABS: BASOPHILS % 0.5 % (0.0-2.0); EOSINOPHILS # 0.6 10^3/ul (0.0-0.5); EOSINOPHILS % 10.2 % (0.0-7.0); HEMATOCRIT 31.5 % (42.0-52.0); HEMOGLOBIN 10.2 g/dl (14.0-18.0); LYMPHOCYTES # 1.3 10^3/ul (0.8-2.9); LYMPHOCYTES % 22.7 % (15.0-51.0); MEAN CORPUSCULAR HEMOGLOBIN 30.5 pg (29.0-33.0); MEAN CORPUSCULAR HGB CONC 32.4 g/dl (32.0-37.0); MEAN CORPUSCULAR VOLUME 94.3 fl (82.0-101.0); MEAN PLATELET VOLUME 10.7 fl (7.4-10.4); MONOCYTE # 0.5 10^3/ul (0.3-0.9); MONOCYTES % 8.3 % (0.0-11.0); NEUTROPHIL # 3.4 10^3/ul (1.6-7.5); PLATELET COUNT 102 10^3/UL (140-415); RED BLOOD COUNT 3.34 10^6/ul (4.70-6.10); RED CELL DISTRIBUTION WIDTH 15.2 % (11.5-14.5)
[2017-11-08 06:37] LABS: VANCOMYCIN,RANDOM 13.7 ug/ml
[2017-11-08 07:07] LABS: ANION GAP 15 (8-16); BLOOD UREA NITROGEN 47 mg/dl (7-20); CALCIUM 7.9 mg/dl (8.4-10.2); CARBON DIOXIDE 29 mmol/L (21-31); CHLORIDE 100 mmol/L (97-110); CREATININE 3.01 mg/dl (0.61-1.24); GLUCOSE 143 mg/dl (70-220); MAGNESIUM 2.4 mg/dl (1.7-2.5); PHOSPHORUS 2.8 mg/dl (2.5-4.9); POTASSIUM 4.8 mmol/L (3.5-5.1); SODIUM 139 mmol/L (135-144)
[2017-11-08] MEDS: AMLODIPINE 10 MG TAB GTB (08:12)
[2017-11-08] MEDS: LACTOBACILLUS RHAMNOSUS CAP GTB ×2 (08:13→20:55)
[2017-11-08] MEDS: MUPIROCIN 2% 22 GM OINT TOP ×2 (08:14→20:55)
[2017-11-08] MEDS: FERROUS SULFATE (EC) 325 MG TAB PO ×2 (08:14→20:55)
[2017-11-08] MEDS: LISINOPRIL 20 MG TAB GTB (08:14)
[2017-11-08] MEDS: LEVETIRACETAM (100 MG/ML) 5ML CUP GTB ×2 (08:14→20:55)
[2017-11-08] MEDS: BALSAM PERU/CASTOR OIL 60 GM TUBE TOP ×2 (08:14→20:56)
[2017-11-08] MEDS: ASCORBIC ACID 250 MG TAB GTB (09:00)
[2017-11-08] MEDS: HEPARIN 1000 UNITS/ML 10 ML INJ CATHETER (18:10)
[2017-11-08] MEDS: VANCOMYCIN 1 GM 250 ML IVPB (18:27)
[2017-11-09] MEDS: INSULIN ASPART [NOVOLOG] 3 ML PEN SC ×4 (00:13→17:27)
[2017-11-09] MEDS: PIPER-TAZO 2.25 GM (PMX) 50 ML IVPB ×3 (05:34→21:29)
[2017-11-09] MEDS: PANTOPRAZOLE (EC) 40 MG TAB PO (05:35)
[2017-11-09 06:19] LABS: ADD MAN DIFF? NO
[2017-11-09 06:25] LABS: BASOPHILS % 0.4 % (0.0-2.0); EOSINOPHILS # 0.8 10^3/ul (0.0-0.5); EOSINOPHILS % 11.7 % (0.0-7.0); HEMATOCRIT 31.8 % (42.0-52.0); LYMPHOCYTES # 1.5 10^3/ul (0.8-2.9); LYMPHOCYTES % 22.5 % (15.0-51.0); MEAN CORPUSCULAR HEMOGLOBIN 29.9 pg (29.0-33.0); MEAN CORPUSCULAR HGB CONC 31.4 g/dl (32.0-37.0); MEAN CORPUSCULAR VOLUME 95.2 fl (82.0-101.0); MEAN PLATELET VOLUME 10.6 fl (7.4-10.4); MONOCYTE # 0.4 10^3/ul (0.3-0.9); MONOCYTES % 6.3 % (0.0-11.0); NEUTROPHILS % 58.7 % (39.0-77.0); PLATELET COUNT 110 10^3/UL (140-415); RED BLOOD COUNT 3.34 10^6/ul (4.70-6.10); RED CELL DISTRIBUTION WIDTH 15.4 % (11.5-14.5)
[2017-11-09 06:25] LABS: WHITE BLOOD COUNT 6.9 10^3/ul (4.8-10.8)
[2017-11-09 07:22] LABS: ANION GAP 12 (8-16); BLOOD UREA NITROGEN 27 mg/dl (7-20); CALCIUM 7.9 mg/dl (8.4-10.2); CARBON DIOXIDE 32 mmol/L (21-31); CHLORIDE 102 mmol/L (97-110); CREATININE 2.07 mg/dl (0.61-1.24); GLUCOSE 128 mg/dl (70-220); MAGNESIUM 2.2 mg/dl (1.7-2.5); PHOSPHORUS 2.4 mg/dl (2.5-4.9); POTASSIUM 4.6 mmol/L (3.5-5.1); SODIUM 141 mmol/L (135-144)
[2017-11-09] MEDS: LACTOBACILLUS RHAMNOSUS CAP GTB ×2 (09:10→21:28)
[2017-11-09] MEDS: LEVETIRACETAM (100 MG/ML) 5ML CUP GTB ×2 (09:12→21:29)
[2017-11-09] MEDS: ASCORBIC ACID 250 MG TAB GTB (09:13)
[2017-11-09] MEDS: AMLODIPINE 10 MG TAB GTB (09:13)
[2017-11-09] MEDS: FERROUS SULFATE (EC) 325 MG TAB PO ×2 (09:13→21:28)
[2017-11-09] MEDS: LISINOPRIL 20 MG TAB GTB (09:14)
[2017-11-09] MEDS: BALSAM PERU/CASTOR OIL 60 GM TUBE TOP ×2 (09:15→21:00)
[2017-11-09] MEDS: MUPIROCIN 2% 22 GM OINT TOP ×2 (09:16→21:00)
[2017-11-10] MEDS: INSULIN ASPART [NOVOLOG] 3 ML PEN SC ×4 (00:25→17:06)
[2017-11-10] MEDS: PIPER-TAZO 2.25 GM (PMX) 50 ML IVPB ×3 (05:58→22:38)
[2017-11-10] MEDS: PANTOPRAZOLE (EC) 40 MG TAB PO (05:59)
[2017-11-10 06:09] LABS: ADD MAN DIFF? NO
[2017-11-10 06:12] LABS: BASOPHILS % 0.5 % (0.0-2.0); EOSINOPHILS # 0.8 10^3/ul (0.0-0.5); EOSINOPHILS % 12.1 % (0.0-7.0); HEMATOCRIT 31.8 % (42.0-52.0); HEMOGLOBIN 10.3 g/dl (14.0-18.0); LYMPHOCYTES # 1.6 10^3/ul (0.8-2.9); LYMPHOCYTES % 25.4 % (15.0-51.0); MEAN CORPUSCULAR HEMOGLOBIN 30.9 pg (29.0-33.0); MEAN CORPUSCULAR HGB CONC 32.4 g/dl (32.0-37.0); MEAN CORPUSCULAR VOLUME 95.5 fl (82.0-101.0); MEAN PLATELET VOLUME 10.9 fl (7.4-10.4); MONOCYTE # 0.4 10^3/ul (0.3-0.9); MONOCYTES % 6.6 % (0.0-11.0); NEUTROPHIL # 3.5 10^3/ul (1.6-7.5); NEUTROPHILS % 55.1 % (39.0-77.0); PLATELET COUNT 111 10^3/UL (140-415); RED BLOOD COUNT 3.33 10^6/ul (4.70-6.10); RED CELL DISTRIBUTION WIDTH 15.1 % (11.5-14.5)
[2017-11-10 06:12] LABS: WHITE BLOOD COUNT 6.4 10^3/ul (4.8-10.8)
[2017-11-10 06:41] LABS: ANION GAP 14 (8-16); BLOOD UREA NITROGEN 45 mg/dl (7-20); CALCIUM 8.1 mg/dl (8.4-10.2); CARBON DIOXIDE 31 mmol/L (21-31); CHLORIDE 101 mmol/L (97-110); CREATININE 2.84 mg/dl (0.61-1.24); GLUCOSE 165 mg/dl (70-220); MAGNESIUM 2.3 mg/dl (1.7-2.5); PHOSPHORUS 3.1 mg/dl (2.5-4.9); SODIUM 141 mmol/L (135-144)
[2017-11-10] MEDS: LEVETIRACETAM (100 MG/ML) 5ML CUP GTB ×2 (08:46→20:19)
[2017-11-10] MEDS: ASCORBIC ACID 250 MG TAB GTB (08:47)
[2017-11-10] MEDS: FERROUS SULFATE (EC) 325 MG TAB PO ×2 (08:47→20:19)
[2017-11-10] MEDS: LISINOPRIL 20 MG TAB GTB (08:47)
[2017-11-10] MEDS: LACTOBACILLUS RHAMNOSUS CAP GTB ×2 (08:47→20:19)
[2017-11-10] MEDS: AMLODIPINE 10 MG TAB GTB (08:48)
[2017-11-10] MEDS: BALSAM PERU/CASTOR OIL 60 GM TUBE TOP ×2 (08:49→20:19)
[2017-11-10] MEDS: MUPIROCIN 2% 22 GM OINT TOP ×2 (08:49→20:19)
[2017-11-10] MEDS: ALBUMIN HUMAN 25% 100 ML IV (14:12)
[2017-11-10] MEDS: HEPARIN 1000 UNITS/ML 10 ML INJ CATHETER (16:13)
[2017-11-10] MEDS: EPOETIN 10000 UNITS/1 ML INJ (ESRD) SC (17:21)
[2017-11-11] MEDS: INSULIN ASPART [NOVOLOG] 3 ML PEN SC ×4 (01:12→18:32)
[2017-11-11] MEDS: PIPER-TAZO 2.25 GM (PMX) 50 ML IVPB ×3 (05:22→21:46)
[2017-11-11] MEDS: PANTOPRAZOLE (EC) 40 MG TAB PO (05:23)
[2017-11-11] MEDS: BALSAM PERU/CASTOR OIL 60 GM TUBE TOP ×2 (09:30→21:47)
[2017-11-11] MEDS: LEVETIRACETAM (100 MG/ML) 5ML CUP GTB ×2 (09:30→21:47)
[2017-11-11] MEDS: ASCORBIC ACID 250 MG TAB GTB (09:31)
[2017-11-11] MEDS: LISINOPRIL 20 MG TAB GTB (09:31)
[2017-11-11] MEDS: LACTOBACILLUS RHAMNOSUS CAP GTB ×2 (09:31→21:48)
[2017-11-11] MEDS: FERROUS SULFATE (EC) 325 MG TAB PO ×2 (09:31→21:47)
[2017-11-11] MEDS: AMLODIPINE 10 MG TAB GTB (09:32)
[2017-11-11] MEDS: MUPIROCIN 2% 22 GM OINT TOP ×2 (09:32→21:52)
[2017-11-12] MEDS: INSULIN ASPART [NOVOLOG] 3 ML PEN SC ×4 (00:15→17:49)
[2017-11-12] MEDS: PANTOPRAZOLE (EC) 40 MG TAB PO (05:56)
[2017-11-12] MEDS: PIPER-TAZO 2.25 GM (PMX) 50 ML IVPB (05:57)
[2017-11-12] MEDS: LACTOBACILLUS RHAMNOSUS CAP GTB ×2 (08:34→21:11)
[2017-11-12] MEDS: BALSAM PERU/CASTOR OIL 60 GM TUBE TOP ×2 (08:34→21:11)
[2017-11-12] MEDS: LEVETIRACETAM (100 MG/ML) 5ML CUP GTB ×2 (08:34→21:08)
[2017-11-12] MEDS: FERROUS SULFATE (EC) 325 MG TAB PO ×2 (08:34→21:09)
[2017-11-12] MEDS: MUPIROCIN 2% 22 GM OINT TOP ×2 (08:34→21:11)
[2017-11-12] MEDS: ASCORBIC ACID 250 MG TAB GTB (08:35)
[2017-11-12] MEDS: AMLODIPINE 10 MG TAB GTB (08:37)
[2017-11-12] MEDS: LISINOPRIL 20 MG TAB GTB (08:37)
[2017-11-12] MEDS: HEPARIN 1000 UNITS/ML 10 ML INJ CATHETER (12:02)
[2017-11-12] MEDS: VANCOMYCIN 1 GM 250 ML IVPB (14:35)
[2017-11-12] MEDS: EPOETIN 10000 UNITS/1 ML INJ (ESRD) SC (17:37)
[2017-11-13] MEDS: INSULIN ASPART [NOVOLOG] 3 ML PEN SC ×4 (01:13→18:25)
[2017-11-13] MEDS: PANTOPRAZOLE (EC) 40 MG TAB PO (06:43)
[2017-11-13] MEDS: LACTOBACILLUS RHAMNOSUS CAP GTB ×2 (08:13→20:22)
[2017-11-13] MEDS: FERROUS SULFATE (EC) 325 MG TAB PO ×2 (08:13→20:22)
[2017-11-13] MEDS: LISINOPRIL 20 MG TAB GTB (08:13)
[2017-11-13] MEDS: AMLODIPINE 10 MG TAB GTB (08:13)
[2017-11-13] MEDS: LEVETIRACETAM (100 MG/ML) 5ML CUP GTB ×2 (08:13→20:22)
[2017-11-13] MEDS: MUPIROCIN 2% 22 GM OINT TOP ×2 (08:20→20:37)
[2017-11-13] MEDS: BALSAM PERU/CASTOR OIL 60 GM TUBE TOP (08:20)
[2017-11-13] MEDS: ASCORBIC ACID 250 MG TAB GTB (08:21)
== END 2017-11-13 20:45 | DRG 870 ==
LOC: E/R 07:34 → 6WM 08:49
PROC: 5A1955Z Respiratory Ventilation, Greater than 96 Consecutive Hours (ICD-10-PCS; principal; 2017-11-03)
PROC: 5A1D70Z Performance of Urinary Filtration, Intermittent, Less than 6 Hours Per Day (ICD-10-PCS; 2017-11-04)
DX: A41.9 Sepsis, unspecified organism (principal); L89.153 Pressure ulcer of sacral region, stage 3; J69.0 Pneumonitis due to inhalation of food and vomit; N18.6 End stage renal disease; G92 Toxic encephalopathy; J96.22 Acute and chronic respiratory failure with hypercapnia; J96.21 Acute and chronic respiratory failure with hypoxia; I13.2 Hypertensive heart and chronic kidney disease with heart failure and with stage 5 chronic kidney disease, or end stage renal disease; I69.954 Hemiplegia and hemiparesis following unspecified cerebrovascular disease affecting left non-dominant side; Z93.1 Gastrostomy status; Z93.0 Tracheostomy status; G40.909 Epilepsy, unspecified, not intractable, without status epilepticus; J44.9 Chronic obstructive pulmonary disease, unspecified; E11.22 Type 2 diabetes mellitus with diabetic chronic kidney disease; I50.9 Heart failure, unspecified; Z99.2 Dependence on renal dialysis; N40.0 Benign prostatic hyperplasia without lower urinary tract symptoms; I73.9 Peripheral vascular disease, unspecified; D63.1 Anemia in chronic kidney disease; Z90.49 Acquired absence of other specified parts of digestive tract; H54.62 Unqualified visual loss, left eye, normal vision right eye; E11.39 Type 2 diabetes mellitus with other diabetic ophthalmic complication; R13.10 Dysphagia, unspecified; I95.9 Hypotension, unspecified; D69.6 Thrombocytopenia, unspecified; L89.622 Pressure ulcer of left heel, stage 2
CPT/HCPCS: 36415; 36600; 70450; 71045; 74018; 80048; 80053; 80202; 82550; 82553; 82803; 82962; 83605; 83735; 84100; 84484; 85025; 85610; 85730; 86850; 86870; 86900; 86901; 87040; 87081; 87340; 90935; 93005; 93306; 94002; 94003; 96374; 97110; 97162; 97167; 97530; 99285-25

== ENCOUNTER 2018-03-17 11:54 | Inpatient (IN) | payer MEDICARE, OTHER ==
[2018-03-17 12:23] LABS: AADO2 Arterial 3.4 mmHg (7.0-24.0); Allen Test ACCEPTAB; Arterial Base Excess -2.2 mmol/L (-3.0-3); Arterial Blood Gas Oxygen Sat 96.4 mmHG (95.0-100.0); Arterial COHb 0.6 % (0.0-3.0); Arterial Fraction of Oxyhgb 95.6 % (93.0-99.0); Arterial HCO3 26.4 mmol/L (22.0-26.0); Arterial MetHb 0.2 % (0.0-1.5); Arterial pCO2 64.7 mmhg (35-45); MODE TRACH COLLAR; Site Right Radial
[2018-03-17 13:02] LABS: ALANINE AMINOTRANSFERASE 17 IU/L (13-69); ALBUMIN 3.8 g/dl (3.3-4.9); ALBUMIN/GLOBULIN RATIO 1.15; ALKALINE PHOSPHATASE 225 IU/L (42-121); ANION GAP 14 (5-13); ASPARTATE AMINO TRANSFERASE 17 IU/L (15-46); BLOOD UREA NITROGEN 60 mg/dl (7-20); CARBON DIOXIDE 27 mmol/L (21-31); CHLORIDE 99 mmol/L (97-110); CREATININE 3.74 mg/dl (0.61-1.24); GLUCOSE 171 mg/dl (70-220); POTASSIUM 3.9 mmol/L (3.5-5.1); SODIUM 140 mmol/L (135-144); TOTAL PROTEIN 7.1 g/dl (6.1-8.1)
[2018-03-17 13:04] LABS: INR 1.02; PROTIME 13.5 Sec (11.9-14.9); PT RATIO 1.1
[2018-03-17 13:05] LABS: PARTIAL THROMBOPLASTIN TIME 38.3 Sec (23.0-35.0)
[2018-03-17 13:10] LABS: ADD MAN DIFF? NO; ADD UMIC YES; BASOPHILS % 0.3 % (0.0-2.0); EOSINOPHILS # 1.1 10^3/ul (0.0-0.5); EOSINOPHILS % 9.5 % (0.0-7.0); HEMATOCRIT 36.2 % (42.0-52.0); HEMOGLOBIN 10.9 g/dl (14.0-18.0); LYMPHOCYTES # 2.1 10^3/ul (0.8-2.9); LYMPHOCYTES % 18.3 % (15.0-51.0); MEAN CORPUSCULAR HEMOGLOBIN 29.5 pg (29.0-33.0); MEAN CORPUSCULAR HGB CONC 30.1 g/dl (32.0-37.0); MEAN CORPUSCULAR VOLUME 98.1 fl (82.0-101.0); MEAN PLATELET VOLUME 10.6 fl (7.4-10.4); MONOCYTE # 0.8 10^3/ul (0.3-0.9); MONOCYTES % 7.1 % (0.0-11.0); NEUTROPHIL # 7.5 10^3/ul (1.6-7.5); NEUTROPHILS % 64.3 % (39.0-77.0); PLATELET COUNT 154 10^3/UL (140-415); RED BLOOD COUNT 3.69 10^6/ul (4.70-6.10); RED CELL DISTRIBUTION WIDTH 16.6 % (11.5-14.5); UR ASCORBIC ACID 40 mg/dL (NEGATIVE); UR BACTERIA MODERATE /HPF (NONE SEEN); UR BILIRUBIN (Dip) NEGATIVE (NEGATIVE); UR BLOOD (Dip) 1+ mg/dL (NEGATIVE); UR CLARITY TURBID (CLEAR); UR COLOR YELLOW (YELLOW); UR GLUCOSE (Dip) NEGATIVE (NEGATIVE); UR KETONES (Dip) TRACE mg/dL (NEGATIVE); UR LEUKOCYTE ESTERASE (Dip) 2+ Leu/ul (NEGATIVE); UR NITRITE (Dip) NEGATIVE (NEGATIVE); UR RBC 18 /HPF (0-5); UR SPECIFIC GRAVITY (Dip) 1.019 (1.003-1.030); UR TOTAL PROTEIN (Dip) 2+ mg/dl (NEGATIVE); UR UROBILINOGEN (Dip) NEGATIVE (NEGATIVE); UR WBC > 182 /HPF (0-5)
[2018-03-17 13:10] LABS: WHITE BLOOD COUNT 11.7 10^3/ul (4.8-10.8)
[2018-03-17 13:13] LABS: TROPONIN-I < 0.012 ng/ml (0.000-0.120)
[2018-03-17] MEDS: CEFEPIME 1GM/50 ML (PMX) 50 ML IVPB (13:26)
[2018-03-17] MEDS: SOD CHLORIDE 0.9% 500 ML IV (13:26)
[2018-03-17] MEDS: VANCOMYCIN 1 GM (PMX) 250 ML IVPB (13:59)
[2018-03-17] MEDS ORDERED: ACETAMINOPHEN 325 MG TAB PO (15:00)
[2018-03-17] MEDS ORDERED: ONDANSETRON 4 MG INJ IV (15:00)
[2018-03-17 15:30] LABS: AADO2 Arterial 32.3 mmHg (7.0-24.0); Allen Test ACCEPTAB; Arterial Base Excess -2.5 mmol/L (-3.0-3); Arterial COHb 0.2 % (0.0-3.0); Arterial Fraction of Oxyhgb 98.6 % (93.0-99.0); Arterial HCO3 21.7 mmol/L (22.0-26.0); Arterial MetHb 0.2 % (0.0-1.5); Arterial pCO2 35.5 mmhg (35-45); MODE VENT - AC; Site Right Radial
[2018-03-17 16:48] LABS: IRON 57 ug/dl (35-150)
[2018-03-17 16:57] LABS: % IRON SATURATION 27 % SAT (22-52); TOTAL IRON BINDING CAPACITY 215 ug/dl (241-421)
[2018-03-17] MEDS ORDERED: NON-FORMULARY/PATIENT OWN MED (Protein Supplement (Promod) 30 ML) GTB (17:00)
[2018-03-17] MEDS: CHLORHEXIDINE GLUCONATE 15 ML UD CUP MM (22:02)
[2018-03-17] MEDS: LEVETIRACETAM (100 MG/ML) 5ML CUP GTB (22:02)
[2018-03-17] MEDS: AMLODIPINE 5 MG TAB GTB (22:03)
[2018-03-17] MEDS: SEVELAMER CARBONATE 0.8 GM PKT GTB (23:10)
[2018-03-18] MEDS: LANSOPRAZOLE 30 MG CAP GTB (05:56)
[2018-03-18 06:00] LABS: ADD MAN DIFF? NO
[2018-03-18 06:05] LABS: WHITE BLOOD COUNT 9.2 10^3/ul (4.8-10.8)
[2018-03-18 06:05] LABS: BASOPHILS % 0.3 % (0.0-2.0); EOSINOPHILS # 0.9 10^3/ul (0.0-0.5); EOSINOPHILS % 9.4 % (0.0-7.0); HEMATOCRIT 33.4 % (42.0-52.0); HEMOGLOBIN 10.5 g/dl (14.0-18.0); LYMPHOCYTES % 21.2 % (15.0-51.0); MEAN CORPUSCULAR HEMOGLOBIN 29.5 pg (29.0-33.0); MEAN CORPUSCULAR HGB CONC 31.4 g/dl (32.0-37.0); MEAN CORPUSCULAR VOLUME 93.8 fl (82.0-101.0); MONOCYTE # 0.6 10^3/ul (0.3-0.9); MONOCYTES % 6.6 % (0.0-11.0); NEUTROPHIL # 5.7 10^3/ul (1.6-7.5); PLATELET COUNT 157 10^3/UL (140-415); RED BLOOD COUNT 3.56 10^6/ul (4.70-6.10); RED CELL DISTRIBUTION WIDTH 16.7 % (11.5-14.5)
[2018-03-18 06:38] LABS: ANION GAP 17 (5-13); BLOOD UREA NITROGEN 65 mg/dl (7-20); CALCIUM 8.9 mg/dl (8.4-10.2); CARBON DIOXIDE 24 mmol/L (21-31); CHLORIDE 100 mmol/L (97-110); CREATININE 4.17 mg/dl (0.61-1.24); GLUCOSE 135 mg/dl (70-220); MAGNESIUM 3.1 mg/dl (1.7-2.5); POTASSIUM 3.4 mmol/L (3.5-5.1); SODIUM 141 mmol/L (135-144)
[2018-03-18 08:43] LABS: HEPATITIS B SURFACE ANTIGEN NEGATIVE (NEGATIVE)
[2018-03-18] MEDS ORDERED: EPOETIN 4000 UNITS/1 ML INJ (ESRD) SC (09:00)
[2018-03-18] MEDS: SEVELAMER CARBONATE 0.8 GM PKT GTB ×3 (09:00→21:51)
[2018-03-18] MEDS ORDERED: FERROUS SULFATE 220 MG/5 ML ML GTB (09:00)
[2018-03-18] MEDS: HEPARIN 1000 UNITS/ML 10 ML INJ CATHETER (10:57)
[2018-03-18] MEDS: MULTIVIT/CA CARB/B CMPLX/FA TAB PO (11:21)
[2018-03-18] MEDS: LEVETIRACETAM (100 MG/ML) 5ML CUP GTB ×2 (11:21→21:50)
[2018-03-18] MEDS: CHLORHEXIDINE GLUCONATE 15 ML UD CUP MM ×2 (11:21→21:50)
[2018-03-18] MEDS: LACTOBACILLUS RHAMNOSUS CAP GTB (11:22)
[2018-03-18] MEDS: LISINOPRIL 20 MG TAB GTB (11:22)
[2018-03-18] MEDS: CHOLECALCIFEROL 2,000 UNIT CAP GTB (11:23)
[2018-03-18] MEDS: AMLODIPINE 5 MG TAB GTB ×2 (11:23→21:51)
[2018-03-18] MEDS: POTASSIUM CHLORIDE 20 MEQ POWDER FOR ORAL SOLN GTB (11:23)
[2018-03-18] MEDS: CEFEPIME 1GM/50 ML (PMX) 50 ML IVPB (15:32)
[2018-03-18] MEDS: FERROUS SULFATE 60 MG/ML 5ML CUP GTB (16:50)
[2018-03-19] MEDS: CEFEPIME 1GM/50 ML (PMX) 50 ML IVPB ×2 (01:02→15:13)
[2018-03-19] MEDS: LANSOPRAZOLE 30 MG CAP GTB (06:00)
[2018-03-19 06:05] LABS: ADD MAN DIFF? NO
[2018-03-19 06:07] LABS: BASOPHILS % 0.3 % (0.0-2.0); EOSINOPHILS # 0.8 10^3/ul (0.0-0.5); EOSINOPHILS % 9.7 % (0.0-7.0); HEMATOCRIT 36.6 % (42.0-52.0); HEMOGLOBIN 11.2 g/dl (14.0-18.0); LYMPHOCYTES # 1.9 10^3/ul (0.8-2.9); LYMPHOCYTES % 23.8 % (15.0-51.0); MEAN CORPUSCULAR HGB CONC 30.6 g/dl (32.0-37.0); MEAN CORPUSCULAR VOLUME 94.8 fl (82.0-101.0); MEAN PLATELET VOLUME 10.5 fl (7.4-10.4); MONOCYTE # 0.7 10^3/ul (0.3-0.9); MONOCYTES % 8.9 % (0.0-11.0); NEUTROPHIL # 4.5 10^3/ul (1.6-7.5); NEUTROPHILS % 56.5 % (39.0-77.0); PLATELET COUNT 136 10^3/UL (140-415); RED BLOOD COUNT 3.86 10^6/ul (4.70-6.10); RED CELL DISTRIBUTION WIDTH 17.1 % (11.5-14.5)
[2018-03-19 06:07] LABS: WHITE BLOOD COUNT 7.9 10^3/ul (4.8-10.8)
[2018-03-19 06:52] LABS: ANION GAP 11 (5-13); BLOOD UREA NITROGEN 41 mg/dl (7-20); CALCIUM 8.8 mg/dl (8.4-10.2); CARBON DIOXIDE 27 mmol/L (21-31); CHLORIDE 102 mmol/L (97-110); CREATININE 2.68 mg/dl (0.61-1.24); GLUCOSE 164 mg/dl (70-220); MAGNESIUM 2.7 mg/dl (1.7-2.5); PHOSPHORUS 1.6 mg/dl (2.5-4.9); POTASSIUM 4.1 mmol/L (3.5-5.1); SODIUM 140 mmol/L (135-144)
[2018-03-19] MEDS: CHLORHEXIDINE GLUCONATE 15 ML UD CUP MM ×2 (09:12→21:48)
[2018-03-19] MEDS: FERROUS SULFATE 60 MG/ML 5ML CUP GTB (09:12)
[2018-03-19] MEDS: LACTOBACILLUS RHAMNOSUS CAP GTB (09:13)
[2018-03-19] MEDS: LISINOPRIL 20 MG TAB GTB (09:13)
[2018-03-19] MEDS: COLLAGENASE 5 GM (UD JAR) TOP (09:13)
[2018-03-19] MEDS: LEVETIRACETAM (100 MG/ML) 5ML CUP GTB ×2 (09:13→21:50)
[2018-03-19] MEDS: CHOLECALCIFEROL 2,000 UNIT CAP GTB (09:13)
[2018-03-19] MEDS: MULTIVIT/CA CARB/B CMPLX/FA TAB PO (09:13)
[2018-03-19] MEDS: AMLODIPINE 5 MG TAB GTB ×2 (09:13→21:49)
[2018-03-19] MEDS: BALSAM PERU/CASTOR OIL 60 GM TUBE TOP ×2 (09:17→21:50)
[2018-03-19] MEDS ORDERED: VANCOMYCIN IV PER PHARMACY XX (11:30)
[2018-03-19 12:09] LABS: VANCOMYCIN,RANDOM 11.1 ug/ml
[2018-03-19] MEDS: VANCOMYCIN 1 GM 250 ML IVPB (16:07)
[2018-03-20 06:15] LABS: ADD MAN DIFF? NO
[2018-03-20] MEDS: LANSOPRAZOLE 30 MG CAP GTB (06:18)
[2018-03-20 06:22] LABS: BASOPHILS % 0.3 % (0.0-2.0); EOSINOPHILS # 0.7 10^3/ul (0.0-0.5); EOSINOPHILS % 10.5 % (0.0-7.0); HEMATOCRIT 35.9 % (42.0-52.0); HEMOGLOBIN 11.2 g/dl (14.0-18.0); LYMPHOCYTES # 1.4 10^3/ul (0.8-2.9); LYMPHOCYTES % 20.1 % (15.0-51.0); MEAN CORPUSCULAR HEMOGLOBIN 29.2 pg (29.0-33.0); MEAN CORPUSCULAR HGB CONC 31.2 g/dl (32.0-37.0); MEAN CORPUSCULAR VOLUME 93.7 fl (82.0-101.0); MONOCYTE # 0.6 10^3/ul (0.3-0.9); MONOCYTES % 7.9 % (0.0-11.0); NEUTROPHIL # 4.2 10^3/ul (1.6-7.5); NEUTROPHILS % 60.6 % (39.0-77.0); PLATELET COUNT 131 10^3/UL (140-415); RED BLOOD COUNT 3.83 10^6/ul (4.70-6.10); RED CELL DISTRIBUTION WIDTH 16.4 % (11.5-14.5)
[2018-03-20 06:31] LABS: ANION GAP 17 (5-13); BLOOD UREA NITROGEN 54 mg/dl (7-20); CALCIUM 8.6 mg/dl (8.4-10.2); CARBON DIOXIDE 25 mmol/L (21-31); CHLORIDE 100 mmol/L (97-110); CREATININE 3.35 mg/dl (0.61-1.24); GLUCOSE 183 mg/dl (70-220); MAGNESIUM 2.8 mg/dl (1.7-2.5); PHOSPHORUS 1.8 mg/dl (2.5-4.9); POTASSIUM 4.3 mmol/L (3.5-5.1); SODIUM 142 mmol/L (135-144)
[2018-03-20] MEDS: LISINOPRIL 20 MG TAB GTB (09:00)
[2018-03-20] MEDS: NEUTRA-PHOS 250 MG PACKET GTB ×2 (09:00→20:47)
[2018-03-20] MEDS: AMLODIPINE 5 MG TAB GTB ×2 (09:00→20:46)
[2018-03-20] MEDS: CHOLECALCIFEROL 2,000 UNIT CAP GTB (09:00)
[2018-03-20] MEDS: FERROUS SULFATE 60 MG/ML 5ML CUP GTB (09:00)
[2018-03-20] MEDS: MULTIVIT/CA CARB/B CMPLX/FA TAB PO (09:00)
[2018-03-20] MEDS: LACTOBACILLUS RHAMNOSUS CAP GTB (09:00)
[2018-03-20] MEDS: LEVETIRACETAM (100 MG/ML) 5ML CUP GTB ×2 (09:00→20:46)
[2018-03-20] MEDS: COLLAGENASE 5 GM (UD JAR) TOP (09:24)
[2018-03-20] MEDS: CHLORHEXIDINE GLUCONATE 15 ML UD CUP MM ×2 (09:24→20:45)
[2018-03-20] MEDS: BALSAM PERU/CASTOR OIL 60 GM TUBE TOP ×2 (09:24→20:47)
[2018-03-20] MEDS: HEPARIN 1000 UNITS/ML 10 ML INJ CATHETER (13:00)
[2018-03-20] MEDS: CEFEPIME 1GM/50 ML (PMX) 50 ML IVPB (15:42)
[2018-03-21] MEDS: LANSOPRAZOLE 30 MG CAP GTB (05:32)
[2018-03-21 06:37] LABS: VANCOMYCIN,RANDOM 16.2 ug/ml
[2018-03-21] MEDS: MULTIVIT/CA CARB/B CMPLX/FA TAB PO (08:58)
[2018-03-21] MEDS: AMLODIPINE 5 MG TAB GTB ×2 (08:59→20:54)
[2018-03-21] MEDS: LACTOBACILLUS RHAMNOSUS CAP GTB (08:59)
[2018-03-21] MEDS: LISINOPRIL 20 MG TAB GTB (08:59)
[2018-03-21] MEDS: CHOLECALCIFEROL 2,000 UNIT CAP GTB (09:00)
[2018-03-21] MEDS: CHLORHEXIDINE GLUCONATE 15 ML UD CUP MM ×2 (09:00→21:00)
[2018-03-21] MEDS: LEVETIRACETAM (100 MG/ML) 5ML CUP GTB ×2 (09:01→20:51)
[2018-03-21] MEDS: BALSAM PERU/CASTOR OIL 60 GM TUBE TOP ×2 (09:01→20:54)
[2018-03-21] MEDS: COLLAGENASE 5 GM (UD JAR) TOP (09:01)
[2018-03-21] MEDS: FERROUS SULFATE 60 MG/ML 5ML CUP GTB (09:01)
[2018-03-21] MEDS: NEUTRA-PHOS 250 MG PACKET GTB ×2 (09:02→20:51)
[2018-03-21] MEDS: COLISTIMETHATE 100 MG in SOD CHLORIDE 0.9% 100 ML IVPB (17:28)
[2018-03-21] MEDS: ALBUTEROL/IPRATROPIUM (NEB) 3 ML AMP NEB (23:49)
[2018-03-22] MEDS: LANSOPRAZOLE 30 MG CAP GTB (05:59)
[2018-03-22 06:06] LABS: ADD MAN DIFF? NO
[2018-03-22 06:12] LABS: WHITE BLOOD COUNT 7.9 10^3/ul (4.8-10.8)
[2018-03-22 06:12] LABS: BASOPHILS % 0.5 % (0.0-2.0); EOSINOPHILS # 0.9 10^3/ul (0.0-0.5); EOSINOPHILS % 11.1 % (0.0-7.0); HEMATOCRIT 36.4 % (42.0-52.0); HEMOGLOBIN 11.3 g/dl (14.0-18.0); LYMPHOCYTES # 2.2 10^3/ul (0.8-2.9); LYMPHOCYTES % 27.3 % (15.0-51.0); MEAN CORPUSCULAR HEMOGLOBIN 28.8 pg (29.0-33.0); MEAN CORPUSCULAR VOLUME 92.9 fl (82.0-101.0); MEAN PLATELET VOLUME 11.4 fl (7.4-10.4); MONOCYTE # 0.7 10^3/ul (0.3-0.9); MONOCYTES % 9.2 % (0.0-11.0); NEUTROPHILS % 51.3 % (39.0-77.0); PLATELET COUNT 123 10^3/UL (140-415); RED BLOOD COUNT 3.92 10^6/ul (4.70-6.10); RED CELL DISTRIBUTION WIDTH 16.1 % (11.5-14.5)
[2018-03-22 06:56] LABS: ANION GAP 18 (5-13); BLOOD UREA NITROGEN 58 mg/dl (7-20); CALCIUM 8.2 mg/dl (8.4-10.2); CARBON DIOXIDE 27 mmol/L (21-31); CHLORIDE 94 mmol/L (97-110); CREATININE 3.14 mg/dl (0.61-1.24); GLUCOSE 211 mg/dl (70-220); MAGNESIUM 2.4 mg/dl (1.7-2.5); PHOSPHORUS 2.8 mg/dl (2.5-4.9); POTASSIUM 4.2 mmol/L (3.5-5.1); SODIUM 139 mmol/L (135-144)
[2018-03-22] MEDS: MULTIVIT/CA CARB/B CMPLX/FA TAB PO (08:39)
[2018-03-22] MEDS: LEVETIRACETAM (100 MG/ML) 5ML CUP GTB ×2 (08:39→21:36)
[2018-03-22] MEDS: FERROUS SULFATE 60 MG/ML 5ML CUP GTB (08:39)
[2018-03-22] MEDS: CHLORHEXIDINE GLUCONATE 15 ML UD CUP MM ×2 (08:39→21:36)
[2018-03-22] MEDS: COLLAGENASE 5 GM (UD JAR) TOP (08:39)
[2018-03-22] MEDS: NEUTRA-PHOS 250 MG PACKET GTB ×2 (08:39→21:36)
[2018-03-22] MEDS: AMLODIPINE 5 MG TAB GTB ×2 (08:40→21:36)
[2018-03-22] MEDS: CHOLECALCIFEROL 2,000 UNIT CAP GTB (08:40)
[2018-03-22] MEDS: BALSAM PERU/CASTOR OIL 60 GM TUBE TOP ×2 (08:41→21:36)
[2018-03-22] MEDS: LISINOPRIL 20 MG TAB GTB (09:00)
[2018-03-22] MEDS: ALBUMIN HUMAN 25% 100 ML IV ×2 (10:41→11:53)
[2018-03-22] MEDS ORDERED: ALBUMIN HUMAN 25% 100 ML IV ×2 (11:30)
[2018-03-22] MEDS: HEPARIN 1000 UNITS/ML 10 ML INJ CATHETER (14:14)
[2018-03-22] MEDS: LACTOBACILLUS RHAMNOSUS CAP GTB (14:51)
[2018-03-23] MEDS: LANSOPRAZOLE 30 MG CAP GTB (06:55)
[2018-03-23] MEDS: LEVETIRACETAM (100 MG/ML) 5ML CUP GTB ×2 (08:51→21:50)
[2018-03-23] MEDS: CHLORHEXIDINE GLUCONATE 15 ML UD CUP MM ×2 (08:51→21:50)
[2018-03-23] MEDS: FERROUS SULFATE 60 MG/ML 5ML CUP GTB (08:51)
[2018-03-23] MEDS: LISINOPRIL 20 MG TAB GTB (08:52)
[2018-03-23] MEDS: MULTIVIT/CA CARB/B CMPLX/FA TAB PO (08:52)
[2018-03-23] MEDS: COLLAGENASE 5 GM (UD JAR) TOP (08:52)
[2018-03-23] MEDS: LACTOBACILLUS RHAMNOSUS CAP GTB (08:53)
[2018-03-23] MEDS: AMLODIPINE 5 MG TAB GTB ×2 (08:53→21:50)
[2018-03-23] MEDS: NEUTRA-PHOS 250 MG PACKET GTB ×2 (08:53→21:50)
[2018-03-23] MEDS: CHOLECALCIFEROL 2,000 UNIT CAP GTB (08:53)
[2018-03-23] MEDS: BALSAM PERU/CASTOR OIL 60 GM TUBE TOP ×2 (08:54→21:51)
[2018-03-23] MEDS: ONDANSETRON 4 MG TAB GTB (10:15)
[2018-03-23] MEDS: CIPROFLOXACIN HCL OTIC DROP 0.25 ML BOTH EARS ×2 (12:58→21:49)
[2018-03-23] MEDS: COLISTIMETHATE 100 MG in SOD CHLORIDE 0.9% 100 ML IVPB (15:41)
[2018-03-23] MEDS: ACETAMINOPHEN 325 MG TAB GTB (21:54)
[2018-03-24] MEDS: LANSOPRAZOLE 30 MG CAP GTB (05:36)
[2018-03-24] MEDS: LEVOFLOXACIN 250 MG TAB PO (05:36)
[2018-03-24] MEDS: LEVETIRACETAM (100 MG/ML) 5ML CUP GTB ×2 (08:44→21:05)
[2018-03-24] MEDS: CHLORHEXIDINE GLUCONATE 15 ML UD CUP MM ×2 (08:44→21:05)
[2018-03-24] MEDS: COLLAGENASE 5 GM (UD JAR) TOP (08:44)
[2018-03-24] MEDS: CIPROFLOXACIN HCL OTIC DROP 0.25 ML BOTH EARS ×2 (08:44→21:05)
[2018-03-24] MEDS: NEUTRA-PHOS 250 MG PACKET GTB ×2 (08:44→21:05)
[2018-03-24] MEDS: FERROUS SULFATE 60 MG/ML 5ML CUP GTB (08:45)
[2018-03-24] MEDS: AMLODIPINE 5 MG TAB GTB ×2 (08:45→21:04)
[2018-03-24] MEDS: CHOLECALCIFEROL 2,000 UNIT CAP GTB (08:45)
[2018-03-24] MEDS: MULTIVIT/CA CARB/B CMPLX/FA TAB PO (08:45)
[2018-03-24] MEDS: LACTOBACILLUS RHAMNOSUS CAP GTB (08:45)
[2018-03-24] MEDS: BALSAM PERU/CASTOR OIL 60 GM TUBE TOP ×2 (08:47→21:06)
[2018-03-24] MEDS: LISINOPRIL 20 MG TAB GTB (09:00)
[2018-03-24] MEDS: HEPARIN 1000 UNITS/ML 10 ML INJ CATHETER (15:09)
[2018-03-25] MEDS: LANSOPRAZOLE 30 MG CAP GTB (05:55)
[2018-03-25] MEDS: LEVOFLOXACIN 250 MG TAB PO (05:55)
[2018-03-25] MEDS: COLLAGENASE 5 GM (UD JAR) TOP (09:47)
[2018-03-25] MEDS: LEVETIRACETAM (100 MG/ML) 5ML CUP GTB ×2 (09:47→21:22)
[2018-03-25] MEDS: CIPROFLOXACIN HCL OTIC DROP 0.25 ML BOTH EARS ×2 (09:47→21:22)
[2018-03-25] MEDS: NEUTRA-PHOS 250 MG PACKET GTB ×2 (09:47→21:25)
[2018-03-25] MEDS: CHLORHEXIDINE GLUCONATE 15 ML UD CUP MM ×2 (09:48→21:22)
[2018-03-25] MEDS: FERROUS SULFATE 60 MG/ML 5ML CUP GTB (09:48)
[2018-03-25] MEDS: MULTIVIT/CA CARB/B CMPLX/FA TAB PO (09:48)
[2018-03-25] MEDS: CHOLECALCIFEROL 2,000 UNIT CAP GTB (09:48)
[2018-03-25] MEDS: BALSAM PERU/CASTOR OIL 60 GM TUBE TOP ×2 (09:49→21:28)
[2018-03-25] MEDS: AMLODIPINE 5 MG TAB GTB ×2 (09:49→21:23)
[2018-03-25] MEDS: LISINOPRIL 20 MG TAB GTB (09:49)
[2018-03-25] MEDS: LACTOBACILLUS RHAMNOSUS CAP GTB (09:49)
[2018-03-25] MEDS: COLISTIMETHATE 100 MG in SOD CHLORIDE 0.9% 100 ML IVPB (15:53)
[2018-03-25] MEDS: LORAZEPAM 2 MG INJ IV (22:28)
[2018-03-26 05:52] LABS: ADD MAN DIFF? NO
[2018-03-26] MEDS: LEVOFLOXACIN 250 MG TAB PO (05:54)
[2018-03-26] MEDS: LANSOPRAZOLE 30 MG CAP GTB (05:56)
[2018-03-26 06:08] LABS: BASOPHILS % 0.4 % (0.0-2.0); EOSINOPHILS # 0.8 10^3/ul (0.0-0.5); EOSINOPHILS % 10.9 % (0.0-7.0); HEMATOCRIT 31.9 % (42.0-52.0); HEMOGLOBIN 10.1 g/dl (14.0-18.0); LYMPHOCYTES # 1.7 10^3/ul (0.8-2.9); LYMPHOCYTES % 24.6 % (15.0-51.0); MEAN CORPUSCULAR HEMOGLOBIN 28.8 pg (29.0-33.0); MEAN CORPUSCULAR HGB CONC 31.7 g/dl (32.0-37.0); MEAN CORPUSCULAR VOLUME 90.9 fl (82.0-101.0); MEAN PLATELET VOLUME 11.3 fl (7.4-10.4); MONOCYTE # 0.5 10^3/ul (0.3-0.9); NEUTROPHILS % 56.7 % (39.0-77.0); PLATELET COUNT 115 10^3/UL (140-415); POSITIVE DIFF @See below; RED BLOOD COUNT 3.51 10^6/ul (4.70-6.10); RED CELL DISTRIBUTION WIDTH 15.8 % (11.5-14.5)
[2018-03-26 06:16] LABS: INR 1.07; PT RATIO 1.1
[2018-03-26 06:44] LABS: ALANINE AMINOTRANSFERASE 13 IU/L (13-69); ALBUMIN 3.4 g/dl (3.3-4.9); ALBUMIN/GLOBULIN RATIO 1.17; ALKALINE PHOSPHATASE 203 IU/L (42-121); ANION GAP 15 (5-13); ASPARTATE AMINO TRANSFERASE 18 IU/L (15-46); BLOOD UREA NITROGEN 62 mg/dl (7-20); CALCIUM 8.7 mg/dl (8.4-10.2); CARBON DIOXIDE 26 mmol/L (21-31); CHLORIDE 99 mmol/L (97-110); CREATININE 2.95 mg/dl (0.61-1.24); GLUCOSE 142 mg/dl (70-220); MAGNESIUM 2.2 mg/dl (1.7-2.5); POTASSIUM 4.8 mmol/L (3.5-5.1); SODIUM 140 mmol/L (135-144); TOTAL PROTEIN 6.3 g/dl (6.1-8.1)
[2018-03-26] MEDS: LACTOBACILLUS RHAMNOSUS CAP GTB (09:00)
[2018-03-26] MEDS: HEPARIN 1000 UNITS/ML 10 ML INJ CATHETER (11:17)
[2018-03-26] MEDS: ALBUTEROL/IPRATROPIUM (NEB) 3 ML AMP NEB (13:08)
[2018-03-26] MEDS: COLLAGENASE 5 GM (UD JAR) TOP (14:16)
[2018-03-26] MEDS: FERROUS SULFATE 60 MG/ML 5ML CUP GTB (14:16)
[2018-03-26] MEDS: LEVETIRACETAM (100 MG/ML) 5ML CUP GTB ×2 (14:16→20:44)
[2018-03-26] MEDS: LISINOPRIL 20 MG TAB GTB (14:18)
[2018-03-26] MEDS: NEUTRA-PHOS 250 MG PACKET GTB ×2 (14:18→20:43)
[2018-03-26] MEDS: MULTIVIT/CA CARB/B CMPLX/FA TAB PO (14:19)
[2018-03-26] MEDS: CIPROFLOXACIN HCL OTIC DROP 0.25 ML BOTH EARS ×2 (14:19→21:00)
[2018-03-26] MEDS: CHOLECALCIFEROL 2,000 UNIT CAP GTB (14:19)
[2018-03-26] MEDS: BALSAM PERU/CASTOR OIL 60 GM TUBE TOP ×2 (14:20→21:00)
[2018-03-26] MEDS: AMLODIPINE 5 MG TAB GTB ×2 (14:23→20:43)
[2018-03-26] MEDS: CHLORHEXIDINE GLUCONATE 15 ML UD CUP MM ×2 (14:27→20:42)
[2018-03-27] MEDS: LANSOPRAZOLE 30 MG CAP GTB (06:13)
[2018-03-27] MEDS: LEVOFLOXACIN 250 MG TAB PO (06:17)
[2018-03-27] MEDS: CIPROFLOXACIN HCL OTIC DROP 0.25 ML BOTH EARS ×2 (09:00→20:47)
[2018-03-27] MEDS: CHOLECALCIFEROL 2,000 UNIT CAP GTB (09:00)
[2018-03-27] MEDS: LACTOBACILLUS RHAMNOSUS CAP GTB (09:50)
[2018-03-27] MEDS: NEUTRA-PHOS 250 MG PACKET GTB ×2 (09:51→20:23)
[2018-03-27] MEDS: LISINOPRIL 20 MG TAB GTB (09:51)
[2018-03-27] MEDS: MULTIVIT/CA CARB/B CMPLX/FA TAB PO (09:51)
[2018-03-27] MEDS: AMLODIPINE 5 MG TAB GTB ×2 (09:51→20:23)
[2018-03-27] MEDS: BALSAM PERU/CASTOR OIL 60 GM TUBE TOP ×2 (09:52→20:25)
[2018-03-27] MEDS: COLLAGENASE 5 GM (UD JAR) TOP (09:52)
[2018-03-27] MEDS: LEVETIRACETAM (100 MG/ML) 5ML CUP GTB ×2 (09:52→20:23)
[2018-03-27] MEDS: FERROUS SULFATE 60 MG/ML 5ML CUP GTB (09:52)
[2018-03-27] MEDS: CHLORHEXIDINE GLUCONATE 15 ML UD CUP MM ×2 (09:52→20:24)
[2018-03-27] MEDS: GUAIFENESIN/DM 5ML CUP GTB (20:56)
[2018-03-27] MEDS: ALBUTEROL/IPRATROPIUM (NEB) 3 ML AMP NEB (21:01)
[2018-03-28] MEDS: LANSOPRAZOLE 30 MG CAP GTB (05:58)
[2018-03-28] MEDS: LEVOFLOXACIN 250 MG TAB PO (05:58)
[2018-03-28] MEDS: MULTIVIT/CA CARB/B CMPLX/FA TAB PO (09:21)
[2018-03-28] MEDS: CHOLECALCIFEROL 2,000 UNIT CAP GTB (09:21)
[2018-03-28] MEDS: LACTOBACILLUS RHAMNOSUS CAP GTB (09:21)
[2018-03-28] MEDS: NEUTRA-PHOS 250 MG PACKET GTB ×2 (09:21→21:48)
[2018-03-28] MEDS: FERROUS SULFATE 60 MG/ML 5ML CUP GTB (09:22)
[2018-03-28] MEDS: AMLODIPINE 5 MG TAB GTB ×2 (09:22→21:49)
[2018-03-28] MEDS: LISINOPRIL 20 MG TAB GTB (09:22)
[2018-03-28] MEDS: LEVETIRACETAM (100 MG/ML) 5ML CUP GTB ×2 (09:22→21:48)
[2018-03-28] MEDS: COLLAGENASE 5 GM (UD JAR) TOP (09:35)
[2018-03-28] MEDS: CHLORHEXIDINE GLUCONATE 15 ML UD CUP MM ×2 (09:35→21:48)
[2018-03-28] MEDS: BALSAM PERU/CASTOR OIL 60 GM TUBE TOP ×2 (09:36→21:49)
[2018-03-28] MEDS: CIPROFLOXACIN HCL OTIC DROP 0.25 ML BOTH EARS ×2 (11:03→21:49)
[2018-03-28] MEDS: GUAIFENESIN/DM 5ML CUP GTB (18:52)
[2018-03-28] MEDS: ALBUTEROL/IPRATROPIUM (NEB) 3 ML AMP NEB (22:05)
[2018-03-29] MEDS: LANSOPRAZOLE 30 MG CAP GTB (06:19)
[2018-03-29] MEDS: LEVOFLOXACIN 250 MG TAB PO (06:19)
[2018-03-29] MEDS: LEVETIRACETAM (100 MG/ML) 5ML CUP GTB (08:52)
[2018-03-29] MEDS: FERROUS SULFATE 60 MG/ML 5ML CUP GTB (08:52)
[2018-03-29] MEDS: MULTIVIT/CA CARB/B CMPLX/FA TAB PO (08:53)
[2018-03-29] MEDS: LISINOPRIL 20 MG TAB GTB (08:53)
[2018-03-29] MEDS: AMLODIPINE 5 MG TAB GTB (08:54)
[2018-03-29] MEDS: CHOLECALCIFEROL 2,000 UNIT CAP GTB (08:54)
[2018-03-29] MEDS: LACTOBACILLUS RHAMNOSUS CAP GTB (08:55)
[2018-03-29] MEDS: NEUTRA-PHOS 250 MG PACKET GTB (08:55)
[2018-03-29] MEDS: CHLORHEXIDINE GLUCONATE 15 ML UD CUP MM (08:56)
[2018-03-29] MEDS: COLLAGENASE 5 GM (UD JAR) TOP (08:56)
[2018-03-29] MEDS: CIPROFLOXACIN HCL OTIC DROP 0.25 ML BOTH EARS (09:00)
[2018-03-29] MEDS: BALSAM PERU/CASTOR OIL 60 GM TUBE TOP (09:05)
[2018-03-29] MEDS: ALBUMIN HUMAN 25% 100 ML IV (11:49)
[2018-03-29] MEDS: HEPARIN 1000 UNITS/ML 10 ML INJ CATHETER (14:16)
[2018-03-29] MEDS: GUAIFENESIN/DM 5ML CUP GTB (14:56)
== END 2018-03-29 18:02 | DRG 870 ==
LOC: E/R 11:54 → 6WM 14:54
PROC: 5A1955Z Respiratory Ventilation, Greater than 96 Consecutive Hours (ICD-10-PCS; principal; 2018-03-17)
PROC: 5A1D70Z Performance of Urinary Filtration, Intermittent, Less than 6 Hours Per Day (ICD-10-PCS; 2018-03-18)
PROC: 09JK8ZZ Inspection of Nasal Mucosa and Soft Tissue, Via Natural or Artificial Opening Endoscopic (ICD-10-PCS; 2018-03-24)
DX: A41.9 Sepsis, unspecified organism (principal); L89.153 Pressure ulcer of sacral region, stage 3; N18.6 End stage renal disease; J96.21 Acute and chronic respiratory failure with hypoxia; I12.0 Hypertensive chronic kidney disease with stage 5 chronic kidney disease or end stage renal disease; I69.954 Hemiplegia and hemiparesis following unspecified cerebrovascular disease affecting left non-dominant side; N39.0 Urinary tract infection, site not specified; R64 Cachexia; G93.40 Encephalopathy, unspecified; R65.20 Severe sepsis without septic shock; E46 Unspecified protein-calorie malnutrition; E11.22 Type 2 diabetes mellitus with diabetic chronic kidney disease; R13.10 Dysphagia, unspecified; G40.909 Epilepsy, unspecified, not intractable, without status epilepticus; D63.1 Anemia in chronic kidney disease; I25.10 Atherosclerotic heart disease of native coronary artery without angina pectoris; H91.93 Unspecified hearing loss, bilateral; E83.9 Disorder of mineral metabolism, unspecified; H65.93 Unspecified nonsuppurative otitis media, bilateral; E87.6 Hypokalemia; R00.1 Bradycardia, unspecified; J01.30 Acute sphenoidal sinusitis, unspecified; Z68.21 Body mass index [BMI] 21.0-21.9, adult; Z99.2 Dependence on renal dialysis; N40.0 Benign prostatic hyperplasia without lower urinary tract symptoms; Z93.0 Tracheostomy status; Z93.1 Gastrostomy status; Z79.4 Long term (current) use of insulin; Z79.899 Other long term (current) drug therapy
CPT/HCPCS: 36415; 36600; 70450; 71045; 80048; 80053; 80202; 81001; 82728; 82803; 83540; 83605; 83735; 84100; 84484; 85025; 85610; 85730; 87040; 87086; 87340; 90935; 93005; 93306; 94002; 94003; 94640; 94664; 96374; 96375; 99285-25